=== PATIENT | male | born 1950 | race Caucasian/White ===

== ENCOUNTER 2020-10-21 08:14 | Outpatient (CLI) | payer MEDICARE, SELFPAY ==
--- NOTE | 2020-10-21 | ECG_ITS ---
Measurements Intervals [place] Rate: 64 P: -14 [place]: 192 QRS: -12 QRSD: 107 T: 20 QT: 398 QTc: 412 Interpretive Statements SINUS RHYTHM NORMAL ECG Electronically Signed On 10-21-2020 14:25:26 [employer] by Chet Yeager D.O.
[2020-10-21 08:54] LABS: Anion Gap 10 mmol/L (8-16); Blood Urea Nitrogen 22 mg/dL (9-20); Calcium 9.2 mg/dL (8.4-10.2); Carbon Dioxide 23 mmol/L (22-30); Chloride 105 mmol/L (98-107); Estimated Glomerular Filt Rate > 60; Glucose 118 mg/dL (75-110); Potassium 4.2 mmol/L (3.4-5.0); Sodium 138 mmol/L (137-145)
== END 2020-10-21 08:15 | disposition home or self-care (01) ==
PROVIDERS: Visit Provider Orthopaedic Surgery Hand Surgery
DX: M75.122 Complete rotator cuff tear or rupture of left shoulder, not specified as traumatic (principal)
CPT/HCPCS: 36415; 80048; 93005

== ENCOUNTER 2022-10-30 01:07 | Day surgery (SDC) | payer MEDICARE, OTHER, SELFPAY ==
--- NOTE | 2022-10-22 13:42 | PC.NURSE ---
Report to the Outpatient Waiting Room, entrance under the green pavilion located off [facility], at time _0645 on date _10/30/22 . Planned Procedure Time: __45 . Time changes happen often and if your time is changed the preop area will call you the afternoon before. - You and your visitor will be asked to self-screen and do not enter if you have any COVID symptoms. - Only one visitor is requested with a max of two and NO children visitors are allowed at this time. - The patient visitor may be requested to leave or wait in car when not with patient due to distancing restrictions. - A mask is optional within the hospital. Patients may have clear liquids (water, carbonated beverages, clear teas, apple juice) until 3 hours prior to surgery with a maximum of 20 ounces. - No food from midnight until time of surgery - Infants may have breast milk until 4 hours before surgery, formula 6 hours prior to surgery. - Children will be allowed to drink immediately following surgery. If applicable, please bring a bottle or sippy cup to assist with drinking. Juice, water, soda, and popsicles are readily available. For infants on formula, please bring formula the day of surgery. Pacifiers are allowed. Take the following medications with a SIP of water the morning of surgery: ___NONE Medications to discontinue per physician ___PT STATES ASPIRIN AND MELOXICAM 7 DAYS PRE OP PER DR VASQUEZ, ALL VIT/SUPP 3 DAYS PRE OP Date to take last dose_ASPIRIN/MELOXICAM 10/22/22 AND ALL VIT/SUPP 10/26/22 Please no make-up, nail turkish, hairspray, perfume, deodorant, or body powder the day of surgery. No jewelry (including any body piercings) or valuables the day of surgery, leave them at home. Please take a shower or bath the night before, or the morning of, surgery with an antibacterial soap. Wear comfortable, loose fitting clothing. Children are encouraged to wear pajamas. - Jewelry must be removed prior to entering the operating room. Rings and piercings that are not removed may be cut off. - The hospital will not accept responsibility for valuables. - Please leave all valuables, including medications, at home the day of surgery. If you are going home after surgery, a licensed team otr truck driver must drive you home. - NO public transportation without another adult if you receive anesthesia. - We recommend that an adult stay with you for 24 hours following discharge. - We also recommend that you do not drive, make important decision, drink alcoholic beverages, or take any drugs that were not prescribed by your health care provider for at least 24 hours after your discharge time. For Pediatric surgeries, we recommend two adults accompany the child home. Follow any additional instructions given to you from your surgeon. If you or anyone in your household have experienced Covid symptoms in the past week, please notify your surgeon or the nurse liaison at the phone number below for possible testing. Telephone instructions given to _PATIENT and asked if any additional questions and then verbalized understanding. Patient advised to call surgeon office or pre surgery nurse liaison [phone] if any additional questions.
[2022-10-22 13:49] VITALS: BMI 30.2
--- NOTE | 2022-10-29 17:04 | PM.IMHP ---
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), left ankle (11/22/15) Thyrotoxicosis Tibialis anterior tendon tear, traumatic Toxic multinodular goiter Surgical History Surgical History History of knee surgery History of neck surgery Family History Family History Mother Asthma Other Cerebrovascular accident Family history of arthritis Family history of cardiovascular disease Family history of hearing loss Social History Social History Smoking packs per day: 0.5 Smoking cigarettes per day: 10.0 Years smoked: 20 Smoking pack-years: 10.00 Smoking status: Former smoker Tobacco type: cigarettes Smoking end date: 11/25/12 Alcohol intake: current Drinks per week: 1 Alcohol use details: occasional Substance use: current Substance use type: marijuana Other substance usage details: SMOKES EVERY OTHER DAY Last use: 10/22/22 Living arrangements: with family Spiritual care concerns: No Meds Home Medications and Allergies Home Medications Medication Instructions Recorded Confirmed Type amlodipine 2.5 mg tablet 2.5 mg PO DAILY 11/30/20 10/22/22 History aspirin 81 mg tablet,delayed 81 mg PO DAILY 11/30/20 10/22/22 History release (Adult Aspirin Regimen) cholecalciferol (vitamin D3) 50 50 mcg PO DAILY 11/30/20 10/22/22 History mcg (2,000 unit) capsule fluticasone propionate 50 1 spray intranasal DAILY 11/30/20 10/22/22 History mcg/actuation nasal spray,suspension losartan 100 mg tablet 100 mg PO DAILY 11/30/20 10/22/22 History meloxicam 7.5 mg tablet 7.5 mg PO DAILY 11/30/20 10/22/22 History multivitamin 1 tablet PO DAILY 11/30/20 10/22/22 History omega-3 fatty acids 500 mg capsule 500 mg PO DAILY 11/30/20 10/22/22 History omeprazole 20 mg capsule,delayed 20 mg PO DAILY 11/30/20 10/22/22 History release methimazole 10 mg tablet See Rx Instructions PO DAILY #90 08/01/22 10/22/22 Rx tabs Lactobacillus 1 cap PO HS 10/22/22 10/22/22 History acidophilus-Bifidobac.animalis 2.5 billion cell capsule (Daily Probiotic) acetaminophen 500 mg capsule 1,000 mg PO Q6H PRN Pain 10/22/22 10/22/22 History duloxetine 20 mg capsule,delayed 40 mg PO HS 10/22/22 10/22/22 History release finasteride 5 mg tablet 5 mg PO HS 10/22/22 10/22/22 History gemfibrozil 600 mg tablet 600 mg PO BID 10/22/22 10/22/22 History loratadine 10 mg capsule 10 mg PO HS 10/22/22 10/22/22 History pravastatin 40 mg tablet 40 mg PO HS 10/22/22 10/22/22 History tamsulosin 0.4 mg capsule 0.4 mg PO HS 10/22/22 10/22/22 History Allergies Allergy/AdvReac Type Severity Reaction Status Date / Time Penicillins Allergy Severe Unknown Verified 10/22/22 13:24 lisinopril Allergy Unknown Swelling Verified 10/22/22 13:24 of Lip/Tongue/Throat Exam Narrative: large thyroid Assessment and Plan Assessment and plan (1) Dysphagia: Code(s): R13.10 - Dysphagia, unspecified Status: Acute Assessment and Plan: plan OR right-sided thyroid lobectomy with recurrent laryngeal nerve monitoring. Risks were discussed including bleeding infection damage to surrounding structures need for persistent calcium supplementation need for thyroid supplementation bleeding infection failure to resolve symptoms need for tr
[2022-10-30] VITALS (8 sets, daily range): BP systolic 124–150; BP diastolic 77–86; PULSE 72–84; RESP 15–23; TEMP 36.6–37.1; O2SAT 96–98
[2022-10-30] MEDS: LACTATED RINGERS 1,000 ML 30 ML IV CONT ×2 (07:10→11:46)
--- NOTE | 2022-10-30 07:13 | WPDHPUPDATE1 ---
History and Physical Update Update Date/Time: 10/30/22 07:13 History and Physical has been reviewed, including an updated exam of the patient. There are NO changes in the patient's condition. Risks, benefits, and alternatives have been discussed and questions answered. Patient agrees to proceed with procedure.
[2022-10-30] MEDS: ACETAMINOPHEN 500 MG TABLET 1000 MG PO (07:26)
--- NOTE | 2022-10-30 07:31 | ECG_ITS ---
Measurements Intervals [place] Rate: 70 P: -4 [place]: 194 QRS: -25 QRSD: 109 T: 39 QT: 386 QTc: 419 Interpretive Statements SINUS RHYTHM BORDERLINE LEFT AXIS DEVIATION [QRS AXIS < -20] COMPARED TO ECG 10/21/2020 08:53:27 NO SIGNIFICANT CHANGES Electronically Signed On 10-30-2022 15:30:26 [employer]ARD INSPECTOR by Kamran Winslow M.D.
--- NOTE | 2022-10-30 08:15 | WPDANESEPPF ---
Anes - Initial Pre Proc Eval Procedure: Operation Date: 10/30/22 08:45 Proposed Procedures p Right Thyroidectomy - Chema Camara MD Date/Time: 10/30/22 08:15 Surgeon: Chema Camara MD Pre Op Diagnosis: right thyroid mass Patient Data Age: 72 Gender: M Height: 1.88 m Weight: 110.6 kg Last Vital Signs Temp 36.6 C 10/30/22 07:34 Pulse 72 10/30/22 07:34 Resp 16 10/30/22 07:34 BP 124/78 10/30/22 07:34 Pulse Ox 98 10/30/22 07:34 O2 Del Method Room Air 10/30/22 07:34 Allergies Allergy/AdvReac Type Severity Reaction Status Date / Time Penicillins Allergy Severe Unknown Verified 10/30/22 06:52 lisinopril Allergy Unknown Swelling Verified 10/30/22 06:52 of Lip/Tongue/Throat Home Medications Medication Instructions Recorded Confirmed Type amlodipine 2.5 mg tablet 2.5 mg PO DAILY 11/30/20 10/30/22 History aspirin 81 mg tablet,delayed 81 mg PO DAILY 11/30/20 10/30/22 History release (Adult Aspirin Regimen) cholecalciferol (vitamin D3) 50 50 mcg PO DAILY 11/30/20 10/30/22 History mcg (2,000 unit) capsule fluticasone propionate 50 1 spray intranasal DAILY 11/30/20 10/30/22 History mcg/actuation nasal spray,suspension losartan 100 mg tablet 100 mg PO DAILY 11/30/20 10/30/22 History meloxicam 7.5 mg tablet 7.5 mg PO DAILY 11/30/20 10/30/22 History multivitamin 1 tablet PO DAILY 11/30/20 10/30/22 History omega-3 fatty acids 500 mg capsule 500 mg PO DAILY 11/30/20 10/30/22 History omeprazole 20 mg capsule,delayed 20 mg PO DAILY 11/30/20 10/30/22 History release methimazole 10 mg tablet See Rx Instructions PO DAILY #90 08/01/22 10/30/22 Rx tabs Lactobacillus 1 cap PO HS 10/22/22 10/30/22 History acidophilus-Bifidobac.animalis 2.5 billion cell capsule (Daily Probiotic) acetaminophen 500 mg capsule 1,000 mg PO Q6H PRN Pain 10/22/22 10/30/22 History duloxetine 20 mg capsule,delayed 40 mg PO HS 10/22/22 10/30/22 History release finasteride 5 mg tablet 5 mg PO HS 10/22/22 10/30/22 History gemfibrozil 600 mg tablet 600 mg PO BID 10/22/22 10/30/22 History loratadine 10 mg capsule 10 mg PO HS 10/22/22 10/30/22 History pravastatin 40 mg tablet 40 mg PO HS 10/22/22 10/30/22 History tamsulosin 0.4 mg capsule 0.4 mg PO HS 10/22/22 10/30/22 History Patient hx anesthesia problems: none Family hx anesthesia problems: none Results Review: All pre-operative results and documents have been reviewed as part of the pre-operative evaluation. 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), left ankle (11/22/15) Thyrotoxicosis Tibialis anterior tendon tear, traumatic Toxic multinodular goiter Surgical History Surgical History History of knee surgery History of neck surgery Family History Family History Mother Asthma Other Cerebrovascular accident Family history of arthritis Family history of cardiovascular disease Family history of hearing loss Social History Social History Smoking packs per day: 0.5 Smoking cigarettes per day: 10.0 Years smoked: 20 Smoking pack-years: 10.00 Smoking status: Former smoker Tobacco type: cigarettes Smoking end date: 11/25/12 Alcohol intake: current Drinks per week: 1 Alcohol use details: occasional Substance use: current Substance use type: marijuana Other substance usage details: SMOKES EVERY OTHER DAY Last use: 10/22/22 Living arrangements: with family Spiritual care concerns: No Anes - Eval Final PreProcedure Day of Procedure 10/30/22 08:15
[2022-10-30] MEDS: ceFAZolin 2 GM/D5W 50 ML 2 GM/50 ML BAG IVPB (08:36)
[2022-10-30] MEDS: LIDO 1%/EPINEPHRINE/PF 1:200,000 30 ML VIAL 10 ML XX (09:06)
--- NOTE | 2022-10-30 12:01 | W.PM.PROC2 ---
Procedure Note - Detailed Date of Procedure 10/30/22 Pre-op Diagnosis right thyroid mass, dysphagia, choking, gagging Post-op Diagnosis Same Procedure Performed subtotal right thyroidectomy 90%+ removed Surgeon Chema Camara MD Anesthesia General Indications see above Findings very very large right thyroid lobe removed secondary to bleeding and intimate relationship of right recurrent laryngeal nerve and tubercle of Zuckerkandl decision was made to leave tubercle Description of Procedure patient identified consent verified. Patient brought operating room. Time-out performed. General anesthesia induced Nims monitoring tube secured patient's airway. Patient prepped draped position. Second time-out performed. Recurrent laryngeal nerve monitoring confirmed. Fifteen blade utilized to incise the skin 8 cm incision over the neck 1-2 fingerbreadths above the sternal notch. Included a previous ACDF scar. This was taken down to the subdermal tissue ligature utilized to open tissues completely as well as for hemostasis. Skin hooks double prong skin hooks utilized to create subplatysmal plane superiorly and inferiorly left sorry right anterior jugular vein ligated with ligature. Skin hooks then placed midline were Fe located opened with Bovie as well as ligature this was taken down to the thyroid right thyroid lobe dissected using scissors and ligature the middle thyroid vein was taken on right dissection then was carried superiorly and medial cm the sternothyroid was released from the laryngeal framework with ligature. Superior vascular supply taken with ligature. [place]cocks then utilized to pull this out. Dissection was then carried with peanuts as well as ligature to take the inferior thyroid vessels. No parathyroids were identified on this side. At this point the nerve was located in stuck behind the tubercle of Zuckerkandl the decision made to transect the thyroid with ligature. Tubercle of Zuckerkandl as well as small amount of tissue. Valsalva was then performed after irrigating with copious amounts of normal sterile saline. Any small bleeding was cauterized with bipolar electrocautery at a setting of 10. The nerve was now deep in the tissue. It stimulated deep. Seven Northern Irish drain plate sorry 10 Northern Irish drain placed. Sutured to the skin with 3-0 nylon suture. Strap muscles closed in a vertical fashion using interrupted 3-0 Vicryl platysma closed using 3-0 interrupted Vicryl deep tissue closed 3-0 interrupted Vicryl skin closed with a subcuticular 4-0 Monocryl. Skin glue placed. Upon awakening glide scope was utilized to view the cords right cord moved perfectly. Patient tolerated the procedure well total blood loss 150 cc. No immediate complications. Patient taken to PACU. Estimated Blood Loss -150.0 Drains No Packing No Pathology Yes Complications No immediate complications Condition Stable Disposition PACU
[2022-10-30] MEDS: oxyCODONE HCL (*CRX) 5 MG TAB IR PO (13:04)
== END 2022-10-30 13:49 | disposition home or self-care (01) ==
PROVIDERS: Visit Provider Otolaryngology
PROC: (CPT 60210; principal; 2022-10-30 08:45)
DX: E04.2 Nontoxic multinodular goiter (principal); I10 Essential (primary) hypertension; Z87.891 Personal history of nicotine dependence; F12.90 Cannabis use, unspecified, uncomplicated; Z79.82 Long term (current) use of aspirin; E66.9 Obesity, unspecified; Z68.31 Body mass index [BMI] 31.0-31.9, adult
CPT/HCPCS: 60210; 88307; 93005; A9270; J0330; J0690; J1100; J1170; J2370; J2405; J2704; J3010; J7120

== ENCOUNTER 2022-11-28 09:12 | Outpatient (CLI) | payer MEDICARE, OTHER, SELFPAY | END 2022-11-28 09:13 | disposition home or self-care (01) | PROVIDERS: Referring Provider Internal Medicine Endocrinology, Diabetes & Metabolism; Visit Provider Otolaryngology | DX: E04.2 Nontoxic multinodular goiter (principal) | CPT/HCPCS: 36415; 84443 ==

== ENCOUNTER 2023-08-01 09:46 | Outpatient (CLI) | payer MEDICARE, OTHER, SELFPAY ==
--- NOTE | 2023-08-01 | ECG_ITS ---
Measurements Intervals [place] Rate: 64 P: 53 [place]: 196 QRS: -15 QRSD: 95 T: 39 QT: 394 QTc: 407 Interpretive Statements SINUS RHYTHM BASELINE WANDER- I, II NORMAL ECG COMPARED TO ECG 10/30/2022 07:49:31 NO SIGNIFICANT CHANGES Electronically Signed On 08-01-2023 11:53:14 CDT by Chet Yeager D.O.
[2023-08-01 12:18] LABS: Anion Gap 12 mmol/L (8-16); Blood Urea Nitrogen 18 mg/dL (9-20); Calcium 9.4 mg/dL (8.4-10.2); Carbon Dioxide 22 mmol/L (22-30); Chloride 104 mmol/L (98-107); Estimated Glomerular Filt Rate > 60; Glucose 113 mg/dL (65-110); Potassium 4.4 mmol/L (3.4-5.0); Sodium 138 mmol/L (137-145)
== END 2023-08-01 09:47 | disposition home or self-care (01) ==
PROVIDERS: Visit Provider Orthopaedic Surgery
DX: Z01.818 Encounter for other preprocedural examination (principal)
CPT/HCPCS: 36415; 80048; 93005

== ENCOUNTER 2024-03-05 15:31 | Outpatient (CLI) | payer MEDICARE, OTHER, SELFPAY ==
[2024-03-05 17:31] LABS: Free T4 Free Thyroxine 1.24 ng/mL (0.78-2.19)
== END 2024-03-05 15:32 | disposition home or self-care (01) ==
LOC: ANHWCLAB 15:32
PROVIDERS: Visit Provider Internal Medicine Endocrinology, Diabetes & Metabolism
DX: E04.2 Nontoxic multinodular goiter (principal); E05.90 Thyrotoxicosis, unspecified without thyrotoxic crisis or storm
CPT/HCPCS: 36415; 84439; 84443

== ENCOUNTER 2024-04-27 09:46 | Outpatient (CLI) | payer MEDICARE, OTHER, SELFPAY ==
--- NOTE | ~2024-04-27 | US_ITS ---
Thyroid ultrasound. Clinical History: Post procedural hypothyroidism Findings: Real-time sonography of the thyroid gland was performed. The right lobe measures 4.8 x 2.2 x 2.3 cm. The left lobe measures 5.9 x 3.5 x 3.1 cm. The isthmus is 4 mm in AP diameter. There is a 2.1 x 1.7 x 2.0 cm predominantly solid mildly hypoechoic nodule at the right lower pole wi th central cystic change or necrosis. There is a 2.1 x 1.7 x 2.5 cm hyperechoic solid nodule at the left lower pole. Impression: Bilateral lower pole thyroid nodules, measuring between 2 and 2.5 cm, compatible with TR-3 nodules. G iven size, one year follow-up recommended.. Reviewed, dictated and finalized at location . Impression: Bilateral lower pole thyroid nodules, measuring between 2 and 2.5 cm, compatibl e with TR-3 nodules. Given size, one year follow-up recommended..
== END 2024-04-27 09:47 ==
LOC: GOSHIMG 09:47
PROVIDERS: Visit Provider Otolaryngology
DX: E89.0 Postprocedural hypothyroidism (principal); E04.2 Nontoxic multinodular goiter
CPT/HCPCS: 76536

== ENCOUNTER 2024-05-11 14:45 | Outpatient (CLI) | payer MEDICARE, OTHER, SELFPAY ==
--- NOTE | ~2024-05-11 | CT_ITS ---
EXAMINATION: CT soft tissue neck w con DATE: 05/11/2024 15:12 INDICATION: Neck mass. TECHNIQUE: Computed tomography (CT) of the neck was performed with 75 mL Omnipaque-350 intravenous co ntrast. Automated exposure control and iterative reconstruction technique were employed. The dose-bibi gth product was 450.92 mGy-cm. COMPARISON: None FINDINGS: The thyroid is enlarged and extends into the superior mediastinum. There is a 2.4 cm nodule in right thyroid lobe. There is mild plaque in proximal left internal carotid artery with 0% stenosi s relative to normal distal artery lumen diameter. Calcified mediastinal lymph nodes are consistent w ith old granulomatous disease. No pathologically enlarged cervical lymph nodes. The mastoid air cells are normal. The paranasal sinuses are clear. The orbits are normal. There is moderate cervical spond ylosis. There are changes of anterior fusion procedure at C6-C7. IMPRESSION: 1. Goiter. Consider thyroid ultrasound for risk stratification. Reviewed, dictated and finalized at location E.
[2024-05-11 15:03] LABS: Estimated Glomerular Filt Rate > 60
== END 2024-05-11 14:46 ==
LOC: MICIMG 14:46
PROVIDERS: Visit Provider Otolaryngology
DX: R22.1 Localized swelling, mass and lump, neck (principal); E04.9 Nontoxic goiter, unspecified
CPT/HCPCS: 70491; Q9967

== ENCOUNTER 2024-05-29 00:22 | Day surgery (SDC) | payer MEDICARE, OTHER, SELFPAY ==
--- NOTE | 2024-05-25 13:52 | PC.NURSE ---
Report to the Outpatient Waiting Room, entrance under the green pavilion located off [facility], at time _1200 on date ___05/29/24____. Planned Procedure Time: __1400 . Time changes happen often and if your time is changed the preop area will call you the afternoon before. - You and your visitor will be asked to self-screen and do not enter if you have any COVID symptoms. - A mask is optional within the hospital at this time. Patients may have clear liquids (water, carbonated beverages, clear teas, apple juice) until 3 hours prior to surgery( 11 AM) with a maximum of 20 ounces. - No food from midnight until time of surgery - Infants may have breast milk until 4 hours before surgery, infant formula 6 hours prior to surgery. - Children will be allowed to drink immediately following surgery. If applicable, please bring a bottle or sippy cup to assist with drinking. Juice, water, soda, and popsicles are readily available. For infants on formula, please bring formula the day of surgery. Pacifiers are allowed. Take the following medications with a SIP of water the morning of surgery: _AMLODIPINE ,CARVEDILOL,METHIMAZOLE DO NOT STOP ANY OF YOUR OTHER PRESCRIPTION MEDICATIONS PRIOR TO SURGERY ?EXCEPT THE FOLLOWING Medications to discontinue per physician __HOLD ALL VITAMINS AND SUPPLEMENTS 3 DAYS PRE OP LAST DOSE 05/25/[address] PATEL Please no make-up, nail greenlandic, hairspray, perfume, deodorant, or body powder the day of surgery. No jewelry (including any body piercings) or valuables the day of surgery, leave them at home. Please take a shower or bath the night before, or the morning of, surgery with an antibacterial soap. Wear comfortable, loose fitting clothing. Children are encouraged to wear pajamas. - Jewelry must be removed prior to entering the operating room. Rings and piercings that are not removed may be cut off. - The hospital will not accept responsibility for valuables. - Please leave all valuables, including medications, at home the day of surgery. If you are going home after surgery, a licensed laborer driver must drive you home. - NO public transportation without another adult if you receive anesthesia. - We recommend that an adult stay with you for 24 hours following discharge. - We also recommend that you do not drive, make important decision, drink alcoholic beverages, or take any drugs that were not prescribed by your health care provider for at least 24 hours after your discharge time. For Pediatric surgeries, we recommend two adults accompany the child home. Follow any additional instructions given to you from your surgeon. If you or anyone in your household have experienced Covid symptoms in the past week, please notify your surgeon or the nurse liaison at the phone number below for possible testing. Telephone instructions given to __PT and asked if any additional questions and then verbalized understanding. Patient advised to call surgeon office or pre surgery nurse liaison [phone] if any additional questions.
[2024-05-25 13:57] VITALS: BMI 31.4
--- NOTE | 2024-05-28 15:59 | PM.IMHP ---
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), left ankle (11/22/15) Thyrotoxicosis Tibialis anterior tendon tear, traumatic Toxic multinodular goiter Surgical History Surgical History H/O thyroidectomy right lobe History of knee surgery History of neck surgery S/P hernia surgery Family History Family History Mother Asthma Other Cerebrovascular accident Family history of arthritis Family history of cardiovascular disease Family history of hearing loss Social History Social History Smoking packs per day: 0.5 Smoking cigarettes per day: 10.0 Years smoked: 20 Smoking pack-years: 10.00 Smoking status: Former smoker Tobacco type: cigarettes Smoking end date: 11/25/12 Alcohol intake: current Drinks per week: 1 Alcohol use details: occasional Substance use: current Substance use type: marijuana Other substance usage details: EVERY OTHER DAY Last use: 05/24/24 Lack of Transportation: No Lack of Food: Never True Current Housing: I Have Housing Concerned About Future Housing: No Difficulty Paying Gas/Electric Bills: No Difficulty Paying for Meds: No Currently Unemployed: No Education: Trade/Vocational Certificate Difficulty w/ Childcare or Family Care: No Living arrangements: with family Spiritual care concerns: No Meds Home Medications and Allergies Home Medications Medication Instructions Recorded Confirmed Type amlodipine 2.5 mg tablet 2.5 mg PO DAILY 11/30/20 05/27/24 History cholecalciferol (vitamin D3) 50 50 mcg PO DAILY 11/30/20 05/27/24 History mcg (2,000 unit) capsule fluticasone propionate 50 1 spray intranasal DAILY 11/30/20 05/27/24 History mcg/actuation nasal spray,suspension losartan 100 mg tablet 100 mg PO DAILY 11/30/20 05/27/24 History multivitamin 1 tablet PO DAILY 11/30/20 05/27/24 History omeprazole 20 mg capsule,delayed 20 mg PO DAILY 11/30/20 05/27/24 History release Lactobacillus 1 cap PO HS 10/22/22 05/27/24 History acidophilus-Bifidobac.animalis 2.5 billion cell capsule (Daily Probiotic) acetaminophen 500 mg capsule 1,000 mg PO Q6H PRN Pain 10/22/22 05/27/24 History duloxetine 20 mg capsule,delayed 40 mg PO HS 10/22/22 05/27/24 History release gemfibrozil 600 mg tablet 600 mg PO BID 10/22/22 05/27/24 History loratadine 10 mg capsule 10 mg PO HS 10/22/22 05/27/24 History tamsulosin 0.4 mg capsule 0.4 mg PO HS 10/22/22 05/27/24 History methimazole 10 mg tablet See Rx Instructions PO DAILY #90 03/05/24 05/27/24 Rx tabs carvedilol 6.25 mg tablet 6.25 mg PO BID 05/25/24 05/27/24 History meloxicam 15 mg tablet 15 mg PO DAILY 05/25/24 05/27/24 History pravastatin 80 mg tablet 80 mg PO HS 05/25/24 05/27/24 History Allergies Allergy/AdvReac Type Severity Reaction Status Date / Time Penicillins Allergy Severe Unknown Verified 05/27/24 15:32 lisinopril Allergy Unknown Swelling Verified 05/27/24 15:32 of Lip/Tongue/Throat Exam Narrative: vocal cord leukoplakia Assessment and Plan Assessment and plan (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 Risks discussed bleeding infec
[2024-05-29] VITALS (7 sets, daily range): BP systolic 130–155; BP diastolic 73–93; PULSE 59–70; RESP 12–20; TEMP 36.2–36.4; O2SAT 97–99
--- NOTE | 2024-05-29 07:20 | WPDHPUPDATE1 ---
History and Physical Update Update Date/Time: 05/29/24 07:20 History and Physical has been reviewed, including an updated exam of the patient. There are NO changes in the patient's condition. Risks, benefits, and alternatives have been discussed and questions answered. Patient agrees to proceed with procedure.
[2024-05-29] MEDS: LACTATED RINGERS 1,000 ML 30 ML IV CONT (11:00)
--- NOTE | 2024-05-29 11:58 | WPDANESEPPF ---
Anes - Initial Pre Proc Eval Procedure: Operation Date: 05/29/24 14:00 Proposed Procedures p Direct Laryngoscopy with Vocal Cord Biopsy - Chema Camara MD Date/Time: 05/29/24 11:58 Surgeon: Chema Camara MD Pre Op Diagnosis: Vocal Cord Lesion Patient Data Age: 74 Gender: M Height: 1.88 m Weight: 110 kg Last Vital Signs Temp 36.4 C L 05/29/24 10:20 Pulse 70 05/29/24 10:20 Resp 20 05/29/24 10:20 BP 141/84 H 05/29/24 10:20 Pulse Ox 98 05/29/24 10:20 O2 Del Method Room Air 05/29/24 10:20 Allergies Allergy/AdvReac Type Severity Reaction Status Date / Time Penicillins Allergy Severe Unknown Verified 05/27/24 15:32 lisinopril Allergy Unknown Swelling Verified 05/27/24 15:32 of Lip/Tongue/Throat Home Medications Medication Instructions Recorded Confirmed Type amlodipine 2.5 mg tablet 2.5 mg PO DAILY 11/30/20 05/29/24 History cholecalciferol (vitamin D3) 50 50 mcg PO DAILY 11/30/20 05/29/24 History mcg (2,000 unit) capsule fluticasone propionate 50 1 spray intranasal DAILY 11/30/20 05/29/24 History mcg/actuation nasal spray,suspension losartan 100 mg tablet 100 mg PO DAILY 11/30/20 05/29/24 History multivitamin 1 tablet PO DAILY 11/30/20 05/29/24 History omeprazole 20 mg capsule,delayed 20 mg PO DAILY 11/30/20 05/29/24 History release Lactobacillus 1 cap PO HS 10/22/22 05/29/24 History acidophilus-Bifidobac.animalis 2.5 billion cell capsule (Daily Probiotic) acetaminophen 500 mg capsule 1,000 mg PO Q6H PRN Pain 10/22/22 05/29/24 History duloxetine 20 mg capsule,delayed 40 mg PO HS 10/22/22 05/29/24 History release gemfibrozil 600 mg tablet 600 mg PO BID 10/22/22 05/29/24 History loratadine 10 mg capsule 10 mg PO HS 10/22/22 05/29/24 History tamsulosin 0.4 mg capsule 0.4 mg PO HS 10/22/22 05/29/24 History methimazole 10 mg tablet See Rx Instructions PO DAILY #90 03/05/24 05/29/24 Rx tabs carvedilol 6.25 mg tablet 6.25 mg PO BID 05/25/24 05/29/24 History meloxicam 15 mg tablet 15 mg PO DAILY 05/25/24 05/29/24 History pravastatin 80 mg tablet 80 mg PO HS 05/25/24 05/29/24 History Patient hx anesthesia problems: none Family hx anesthesia problems: none Results Review: All pre-operative results and documents have been reviewed as part of the pre-operative evaluation. 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), left ankle (11/22/15) Thyrotoxicosis Tibialis anterior tendon tear, traumatic Toxic multinodular goiter Surgical History Surgical History H/O thyroidectomy right lobe History of knee surgery History of neck surgery S/P hernia surgery Family History Family History Mother Asthma Other Cerebrovascular accident Family history of arthritis Family history of cardiovascular disease Family history of hearing loss Social History Social History Smoking packs per day: 0.5 Smoking cigarettes per day: 10.0 Years smoked: 20 Smoking pack-years: 10.00 Smoking status: Former smoker Tobacco type: cigarettes Smoking end date: 11/25/12 Alcohol intake: current Drinks per week: 1 Alcohol use details: occasional Substance use: current Substance use type: marijuana Other substance usage details: EVERY OTHER DAY Last use: 05/24/24 Lack of Transportation: No Lack of Food: Never True Current Housing: I Have Housing Concerned About Future Housing: No Difficulty Paying Gas/Electric Bills: No Difficulty Paying for Meds: No Currently Unemployed: No Education: Trade/Vocational Certificate Difficulty w/ Childcare or Family Care:
[2024-05-29] MEDS: OXYMETAZOLINE HCL 0.05% NAS 15 ML BTL (*BKC) 1 SPRAY NASAL (12:41)
--- NOTE | 2024-05-29 13:27 | P.OP_ITS ---
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 Description of Procedure Patient identified consent verified preop. Patient brought operating. Time- out performed. General anesthesia induced endotracheal tube secured. Patient prepped draped position procedure confirmed 2nd time-out performed moist Ray-Kurtis placed over the upper gingiva Dedo laryngoscope placed glottis brought into view suspended endoscope utilized left vocal cord biopsy x3 minimal bleeding if any Afrin-soaked pledgets placed for 5 minutes then removed no further bleeding. Dedo laryngoscope Ray-Kurtis removed all counts were correct. Patient tolerated the procedure well. No complications I performed all dictated portions of procedure Estimated Blood Loss 0 Drains No Packing No Pathology Yes ( left vocal cord lesion) Complications No immediate complications Condition Stable Disposition PACU
== END 2024-05-29 14:25 | disposition home or self-care (01) ==
PROVIDERS: Visit Provider Otolaryngology
PROC: 0CJS8ZZ Inspection of Larynx, Via Natural or Artificial Opening Endoscopic (ICD-10-PCS; CPT 31535; principal; 2024-05-29 14:00)
DX: D14.1 Benign neoplasm of larynx (principal); J37.0 Chronic laryngitis; J38.3 Other diseases of vocal cords
CPT/HCPCS: 31535; 88305; J0330; J1100; J2405; J2704; J3010; J7120

== ENCOUNTER 2024-07-09 08:08 | Outpatient (CLI) | payer MEDICARE, OTHER, SELFPAY ==
--- NOTE | ~2024-07-09 | XR_ITS ---
EXAMINATION: XR barium swallow modified DATE: 07/09/2024 08:54 INDICATION: Dysphagia, specified. TECHNIQUE: The patient was given barium-containing material of multiple consistencies to swallow by t trish speech pathologist while I performed fluoroscopy. Fluoroscopy exposure time was 1.5 minutes. The n umber of fluoroscopy images saved to the PACS was 1. Dose-area product was 2.137 Gy-cm^2. FINDINGS: There is flash laryngeal penetration. IMPRESSION: 1. Flash laryngeal penetration. 2. Please refer to the speech therapy report for recommendations. Reviewed, dictated and finalized at location A.
--- NOTE | 2024-07-09 09:51 | REHSTMBS ---
Assessment and note entered by Brittany Lazcano, [employer]AL [employer] Modified Barium Swallow Evaluation Feeding Type Recommended Oral Food Consistency Regular, Level 7 Liquid Consistency Thin (0) ST Clinical Summary The above pt was seen for a modified barium swallow study due to complaint of coughing and choking especially when he is sleeping in a position with my head down . He added that occasionally he can't swallow correctly when his sinuses drain. Pt denied choking or coughing during meals and denies having a history of pneumonia. Pt reported he can take a hand full of pills but stopped taking the fish oil pill as it seems to get stuck. 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 The pt was positioned for a lateral view. Anterior cervical protrusions were noted along cervical column with the presence of hardware at C6/7. Pt was presented with thin liquids, pudding consistency, mixed consistency, and solids in controlled amounts. He was also tested with thin liquids in uncontrolled amounts via a cup and a straw. The oral stages were intact and within normal limits. During the pharyngeal stage, intermittent flash laryngeal penetration occurred during the trials of uncontrolled thin liquids & cracker. Flash penetration is age appropriate, shallow, and quickly cleared without aspiration risk. No residual or backflow was exhibited. Impression: Functional swallow ability Recommendation: regular diet; regular liquids. possible further testing to determine etiology.
== END 2024-07-09 08:09 | disposition home or self-care (01) ==
LOC: ANHIMG 08:10
PROVIDERS: PCP Family Medicine; Visit Provider Neurological Surgery
DX: R13.10 Dysphagia, unspecified (principal)
CPT/HCPCS: 92611

== ENCOUNTER 2024-08-21 09:55 | Outpatient (CLI) | payer MEDICARE, OTHER, SELFPAY ==
[2024-08-21 11:03] LABS: Thyroid Stimulating Hormone 0.781 uIU/mL (0.465-4.680)
== END 2024-08-21 09:56 | disposition home or self-care (01) ==
LOC: ANHLAB 10:00
PROVIDERS: PCP Family Medicine; Visit Provider Internal Medicine Endocrinology, Diabetes & Metabolism
DX: E04.2 Nontoxic multinodular goiter (principal)
CPT/HCPCS: 36415; 84439; 84443

== ENCOUNTER 2025-02-26 11:57 | Outpatient (CLI) | payer MEDICARE, OTHER, SELFPAY ==
--- OUTSIDE RECORDS SUMMARY | 2025-02-26 12:03 | XMS_ITS | Encounter Summary ---
Author Organization [facility] Address [facility] [place] [address] Care Team Providers Care Traditional Chinese Herbalist Name Role Phone Eric Raza MD Unavailable [phone] Andre Edwards MD Primary Care Provider [phone] Encounter Details Date Type Department Care Team (Late st Contact Info) Description 11/29/2023 Hospital Orders Only [facility] Therapy [address] [place], [place] [id number] Braulio Garrison, PT [address] [place], [place] [id number] Social History Tobacco Use Types Packs/Day Years Used Date Smoking Tobacco: Former Cigarettes Q uit: 2010 Smokeless Tobacco: Never Alcohol Use Standard Drinks/Week Comments Not Currently 2 (1 standard drink = 0.6 oz pur e alcohol) rare AUDIT-C Answer Date Recorded Frequency of Alcohol Consumption 2-4 times a sat11/23/2019 Average Number of Drinks 1 or 2 019 Frequency of Binge Drinking Never 10/27 Overall Financial Resource Strain (CARDIA) Answe r Date Recorded Difficulty of Paying Living Expenses Not hard at all 01/19/2020 PHQ-2 Answer Date Recorded Patient Health Questionnaire-2 Score 0 03/18/2023 Exercise Vital Sign Answer Date Recorde d Days of Exercise per Week Patient declined 01/19 Minutes of Exercise per Session Patient declined 01/19/2020 Hunger Vital Sign Answer Date Recorded Worried About Running Out of Food in the Last Ye ar Never true 01/19/2020 Ran Out of Food in the Last Year Never true 01/19/2020 PRAPARE - Transportation Answer Date Re corded Lack of Transportation (Medical) No 01/19/2020 Lack of Transportation (Non-Medical) No 01/19/2020 Sex and Gender Information Value Date Recorded Sex Assigned at Male 12/29/2024 9:33 AM MARINE FUEL DOCK ATTENDANT Legal Sex Male 5:00 PM CDT Gender Identity Male 01/01/2022 4:34 AM MARINE FUEL DOCK ATTENDANT Sexual Orientation Not on file Occupation Industry Job Start Date Job End Date Not on file Not on file Not on file Not on file documented as of this encounter Plan of Treatment Upcoming Encounters Date Type Department Care Team (Late st Contact Info) Description 03/08/2025 10:15 AM CDT Office Visit [facility] [address] [place] [address] Eric Raza MD [facility]. [address] [place] [address] 03/12/2025 9:20 AM CDT Office Visit [facility] [address] [place] [address] Andre Edwards MD [address] [place], [place] [id number] documented as of this encounter Visit Diagnoses Not on filedocumented in this encounter Additional Health Concerns Assessment Noted Time PHQ-9 Depression Total Score: 0 03/18/20 23 10:03 AM CDT documented as of this encounter Care Teams Traditional Chinese Herbalist Relationship Specialty Start Date End Date Andre Edwards MD [address] [place], [place] [id number] PCP - General FAMILY PRACTICE 05/11/20 Eric Raza MD [facility]. [address] [place] [address] [place] Environmental Adviser CARDIOVASCULAR DISEASE 11/23/19 documented as of this encounter
--- OUTSIDE RECORDS SUMMARY | 2025-02-26 12:03 | XMS_ITS | Encounter Summary ---
Author Organization [facility] Address [facility] [place] [address] Care Team Providers Care Vtc Technician Name Role Phone Eric Raza MD Unavailable [phone] Andre Edwards MD Primary Care Provider Encounter Details Date Type Department Care Team (Late st Contact Info) Description 09/25/2022 [employer] Message Enc [place] [facility], [address] [address] [employer], [facility] Provider Stress Test Social History Tobacco Use Types Packs/Day Years Used Date Smoking Tobacco: Former Cigarettes Q uit: 2010 Smokeless Tobacco: Never Alcohol Use Standard Drinks/Week Comments Yes 0 (1 standard drink = 0.6 oz pur e alcohol) rare AUDIT-C Answer Date Recorded Frequency of Alcohol Consumption 2-4 times a sat11/23/2019 Average Number of Drinks 1 or 2 019 Frequency of Binge Drinking Never 10/27 Overall Financial Resource Strain (CARDIA) Answe r Date Recorded Difficulty of Paying Living Expenses Not hard at all 01/19/2020 PHQ-2 Answer Date Recorded PHQ-2 Score - If the patient scores above 3, please move on to questions 3-9 0 09/19/2022 Exercise Vital Sign Answer Date Recorde d [...] Sex Assigned at Male 12/29/2024 9:33 AM SPRINKLING SYSTEM IRRIGATOR Legal Sex Male 5:00 PM CDT Gender Identity Male 01/01/2022 4:34 AM SPRINKLING SYSTEM IRRIGATOR Sexual Orientation Not on file Occupation Industry Job Start Date Job End Date Not on file Not on file Not on file Not on file COVID-19 Exposure Response Date Recorded In the last 10 days, have yo u been in contact with someone who was confirmed or suspected to have Coronavirus/COVID-19? No / Unsure 09/24/2022 9:16 AM CDT documented as of this encounter Plan of Treatment Upcoming Encounters Date Type Department Care Team (Late st Contact Info) Description 03/08/2025 10:15 AM CDT [facility] [address] [place] [address] Eric Raza MD [facility]. [address] [address] 03/12/2025 9:20 AM CDT Office Visit [facility] [address] [place] [address] Andre Edwards MD [address] [place] [phone] documented as of this encounter Visit Diagnoses Not on filedocumented in this encounter Additional Health Concerns Assessment Noted Time PHQ-9 Depression Total Score: 0 02/21/20 22 8:09 AM CDT documented as of this encounter Care Teams Vtc Technician Relationship Specialty Start Date End Date Andre Edwards MD [facility] [address] [place] [phone] PCP - General FAMILY PRACTICE 05/11/20 Eric Raza MD [facility]. [address] [address] [employer] Test Preparation Tutor CARDIOVASCULAR DISEASE 11/23/19 documented as of this encounter
--- OUTSIDE RECORDS SUMMARY | 2025-02-26 12:03 | XMS_ITS | Clinical Summary ---
Author Organization [facility] Address [address] [place] [address] Care Team Providers Care Habilitative Interventionist Name Role Phone Andre Edwards MD Primary Care Provider [phone] Source Comments [facility],non-owned Affiliates and Associated Physician Practices is amultiple site organization consisting of ambulatory clinics and hospital sitesin [place], [place], [place] and [place]. This disclosure is being madepursuant to the Care Everywhere program and may not contain all information available regarding this patient. Last updated 18.[employer] [facility] Allergies Active Allergy Reactions Criticality Noted Date Comments Lisinopril Swelling High 12/24/2018 tongue Penicillins Rash Medium 03/08/2012 In childhood, does not recall reaction Medications * Be aware that medications may not be up to date on this document. Alwaysverify current medications with the patient. Medication Sig Dispensed Refills Start Date End Date Status amLODIPine (Norvasc) 2.5 MG tablet Take by oral route for 90 days. 06/10/2024 Active aspirin EC (Ecotrin) 81 MG tablet Take 1 (one) tablet by mouth once daily Active BUPivacaine (Marcaine) 0.5 % injection in office 04/01/2024 Active carvedilol (Coreg) 6.25 MG tablet Take 1 (one) tablet by mouth 2 times daily 06/10/2024 Active Cholecalciferol (Vitamin D) 50 MCG (1999) capsule Take 1 (one) capsule by mouth once daily 06/10/2024 Active DULoxetine (Cymbalta) 60 MG capsule Take 1 (one) capsule by mouth once daily 06/10/2024 Active finasteride (Proscar) 5 MG tablet Take 1 (one) tablet by mouth once daily Active gabapentin (Neurontin) 100 MG capsule Take 1 (one) capsule by mouth two times daily at 4am and 4pm Active gemfibrozil (Lopid) 600 MG tablet Take 1 (one) tablet by mouth 2 times daily 06/10/2024 Active loratadine (Claritin) 10 MG tablet Take 1 (one) tablet by mouth once daily as needed Active losartan (Cozaar) 100 MG tablet Take 1 (one) tablet by mouth once daily 06/10/2024 Active meloxicam (Mobic) 15 MG tablet TAKE 1 TABLET (15 MG TOTAL) BY MOUTH DAILY. 04/01/2024 Active methIMAzole (Tapazole) 10 MG tablet TAKE 1 TABLET BY MOUTH DAILY SATURDAY-SATURDAY AND 1/2 TABLET ON SATURDAY AND SATURDAY Active Multiple Vitamin (Multi-Vitamins) TABS Take 1 (one) tablet by mouth Active NA-K-MG sulfates (Suprep) 17.5-3.13-1.6 GM/177ML solution TAKE 177ML BY MOUTH EVERY 12 HOURS FOR 1 DAY TAKE DIRECTED IN THE INSTRUCTIONS 08/25/2024 Active nystatin (Mycostatin) 604156 UNIT/ML suspension SWISH & GARGLE & SWALLOW 4 ML BY MOUTH 4 TIMES A DAY FOR 14 DAYS 04/15/2024 Active omeprazole (PriLOSEC) 20 MG capsule Take 1 (one) capsule by mouth 2 times daily 06/10/2024 Active pravastatin (Pravachol) 80 MG tablet TAKE 1 TABLET BY MOUTH NIGHTLY AT BEDTIME. 06/10/2024 Active rosuvastatin (Crestor) 10 MG tablet Active tamsulosin (Flomax) 0.4 MG capsule Take 1 (one) capsule by mouth at bedtime Active triamcinolone acetonide (Kenalog-10) injection in office 04/01/2024 Active Social History Tobacco Use Types Packs/Day Years Used Date Smoking Tobacco: Former Cigarettes Tobacco Cessation:Counseling Given: No Sex and Gender Information Value Date Recorded Sex Assigned at Not on file Gender Identity Not on file Sexual Orientation Not on file Last Filed Vital Signs Vital Sign Reading Time Taken Comments Blood Pressure 155/96 09/04/2024 11:18 AM CDT Pulse 73 09/04/2024 11:18 AM CDT Temperature 36.4 C (97.6 F) 09/04/2024 11:18 AM CDT Respiratory Rate - - Oxygen Saturation 98% 09/04/2024 11:18 AM CDT Inhaled Oxygen Concentration - - Weight 107 kg (236 lb) 09/04/2024 11:18 AM CDT Height 188 cm (6' 2 ) 09/04/2024 11:18 AM CDT Body Mass Index 30.3 09/04/2024 11:18 AM CDT Plan of Treatment Health Maintenance Due Date Last Done Comments COLOGUARD (AGES 45-75) - COLON CA SCREENING 1952 COLON MONITORING 1952 COLONOSCOPY - COLON CA SCREENING 1952 CT COLONOGRAPHY - COLON CA SCREENING 1952 Colorectal Cancer Screening 1952 FIT - COLON CA SCREENING 1952 FLEX SIG - COLON CA SCREENING 1952 MEDICARE AWV 12 MONTHS 1952 HEPATITIS C SCREENING 02/11/1970 DTAP/TDAP/TD VACCINES (1 - Tdap) 02/15/1971 PNEUMOCOCCAL VACCINE 50+ (1 of 1 - PCV) 02/15/2002 ZOSTER VACCINE (1 of 2) 02/15/2002 COVID-19 VACCINE ( - season) 2024 08/23/2022, 04/26/2022, 09/27/2021, Additional history exists DEPRESSION SCREENING 11/25/2024 INFLUENZA VACCINE (Season Ended) 2025 08/23/2022, 08/18/2020, 10/20/2019, Additional history exists Respiratory Syncytial Virus (RSV) Vaccine Pt: or over 60 yrs (1 - 1-dose 75+ series) 02/15/2027 AAA SCREENING Completed 06/28/2020 HEPATITIS B VACCINE Aged Out No longe r eligible based on patient's age to complete this topic HIB VACCINE Aged Out No longer eligi ble based on patient's age to complete this topic HPV VACCINE Aged Out No longer eligi ble based on patient's age to complete this topic MENINGOCOCCAL (Group B) VACCINE SHARED DECISION-MAKING Aged Out No longer eligible based on patient's age to complete this topic MENINGOCOCCAL GROUPS A/C/Y/W VACCINE Aged Out No longer eligible based on patient's age to complete this topic Care Teams Habilitative Interventionist Relationship Specialty Start Date End Date Andre Edwards MD [facility] [place] [address] PCP - General Family Medicine 09/04/24
--- OUTSIDE RECORDS SUMMARY | 2025-02-26 12:04 | XMS_ITS | Encounter Summary ---
Author Organization [facility] Address [facility] [place] [address] Care Team Providers Care Assembler Fishing Floats Name Role Phone Eric Raza MD Unavailable [phone] Andre Edwards MD Primary Care Provider [phone] Reason for Referral * Surgical (Routine) - New Request Specialty Diagnoses / Procedures Referred By Contac t Referred To Contact Diagnoses Lumbar radiculopathy Procedures Case request operating room: INJECTION EPIDURAL TRANSFORAMINALL5-S1, S1 Jessica Latham CNP [address] [address] Phone: tel: [phone] fax: Referral ID Status Reason Start Date Expiration Date V isits Requested Visits Authorized [id number] New Request 09/14/2024 09/14/2025 1 1 Encounter Details Date Type Department Care Team (Late st Contact Info) Description 09/14/2024 Prep for Procedure [facility] [place] [address] [phone] Jessica Latham CNP [address] [place] [phone] (Work) Social History Tobacco Use Types Packs/Day Years [...] Date Recorded Patient Health Questionnaire-2 Score 0 06/10/2024 Exercise Vital Sign Answer Date Recorde d [...] Sex Assigned at Male 12/29/2024 9:33 AM TEST HOLE DRILLER Legal Sex Male 5:00 PM CDT Gender Identity Male 01/01/2022 4:34 AM TEST HOLE DRILLER Sexual Orientation Not on file Occupation Industry Job Start Date Job End Date Not on file Not on file Not on file Not on file documented as of this encounter Plan of Treatment Upcoming Encounters Date Type Department Care Team (Late st Contact Info) Description 03/08/2025 10:15 AM CDT [facility] [address] [place] [phone] Erci Raza MD [facility]. [address] [place] [address] 03/12/2025 9:20 AM CDT Office Visit [address] [place] [address] Andre Edwards MD [address] [place] [address] documented as of this encounter Visit Diagnoses Diagnosis Lumbar radiculopathy- Primary Thoracic or lumbosacral neuritis or radiculitis, unspecified documented in this encounter Additional Health Concerns Assessment Noted Time PHQ-9 Depression Total Score: 0 03/18/20 23 10:03 AM CDT documented as of this encounter Care Teams Assembler Fishing Floats Relationship Specialty Start Date End Date Andre Edwards MD [facility] [place] [address] PCP - General FAMILY PRACTICE 05/11/20 Eric Raza MD [facility]. [address] [address] [place] Multiple Launch Rocket System Crewmember CARDIOVASCULAR DISEASE 11/23/19 documented as of this encounter
--- OUTSIDE RECORDS SUMMARY | 2025-02-26 12:04 | XMS_ITS | Encounter Summary ---
Author Organization [facility] Address [facility] [place] [address] Care Team Providers Care Director Of Tax Services Name Role Phone Eric Raza MD Unavailable [phone] Andre Edwards MD Primary Care Provider [phone] Encounter Details Date Type Department Care Team (Late st Contact Info) Description 09/20/2020 Abstract [facility], [address] [address] Matt Sherman MA Social History Tobacco Use Types Packs/Day Years [...] Living Expenses Not hard at all 01/19/2020 Exercise Vital Sign Answer Date Recorde d [...] Sex Assigned at Male 12/29/2024 9:33 AM LEAD SYSTEMS ENGINEER Legal Sex Male 5:00 PM CDT Gender Identity Male 01/01/2022 4:34 AM LEAD SYSTEMS ENGINEER Sexual Orientation Not on file Occupation Industry Job Start Date Job End Date Not on file Not on file Not on file Not on file COVID-19 Exposure Response Date Recorded In the last month, have you been in contact with someone who was confirmed or suspected to have Coronavirus / COVID-19? No / Unsure 09/19/2020 9:51 AM CDT documented as of this encounter Plan of Treatment Upcoming Encounters Date Type Department Care Team (Late st Contact Info) Description 03/08/2025 10:15 AM CDT [facility] [place] [facility] [address] [place] [phone] Eric Raza MD [facility]. [address] [address] 03/12/2025 9:20 AM CDT Office Visit [facility] [address] [place], [place] [id number] Andre Edwards MD [address] [facility] [address] [place] [id number] documented as of this encounter Procedures Procedure Name Priority Date/Time Associated Diagnosis Comments FREE T3 Routine 12/02/2020 THYROXINE, FREE (FT4) Routine 12/02/2020 THYROID STIM HORMONE TSH Routine 12/02/2020 COMPREHENSIVE METABOLIC PANEL Routine 08/18/2020 LIPID PANEL Routine 08/18/2020 CK (CPK) Routine 08/18/2020 documented in this encounter Results * FREE T3 (12/02/2020) FREE T3 2.9 12/02/2020 us Doc [facility] Final Result * THYROID STIM HORMONE, TSH (12/02/2020) TSH 1.529 12/02/2020 us Doc [facility]ORAT[facility] Final Result * THYROXINE, FREE (FT4) (12/02/2020) FREE T4 0.92 12/02/2020 us Doc [facility] Final Result * CK (CPK) (08/18/2020) Pathologist [facility] CPK 134 0 - 200 08/18/2020 us Doc [facility]ORAT[facility] Final Result * LIPID PANEL (08/18/2020) Pathologist [facility] CHOLESTEROL 151 HDL 55 TRIGLYCERIDES 66 LDL (CALCULATED) 83 08/18/2020 us Doc [facility] LABORAT[facility] Final Result * (ABNORMAL) COMPREHENSIVE METABOLIC PANEL (08/18/2020) Pathologist [facility] SODIUM S/P/B 139 POTASSIUM S/P/B 4.1 CO2 27 CHLORIDE S/P/B 103 GLUCOSE 96 mg/dL CALCIUM S/P/B 9.0 BUN 18 CREATININE S/P/B 0.8 0.7 - 1.3 EGFR AFR. AMER. 124(A) <=90 EGFR NON-AFR. AMER. 102(A) <=90 ALKALINE PHOSPHATASE S/P/B 91 ALT 22 AST 24 BILIRUBIN TOTAL S/P/B 0.5 ALBUMIN S/P/B 4.1 3.5 - 5.0 TOTAL PROTEIN S/P/B 7.4 08/18/2020 us Doc [facility] LABORAT[facility] Final Result documented in this encounter Visit Diagnoses Not on filedocumented in this encounter Care Teams Director Of Tax Services Relationship Specialty Start Date End Date Andre Edwards MD [address] [place] [address] [place] [address] PCP - General FAMILY PRACTICE 05/11/20 Eric Raza MD [facility]. [address] [address] [employer] Operator CARDIOVASCULAR DISEASE 11/23/19 documented as of this encounter
--- OUTSIDE RECORDS SUMMARY | 2025-02-26 12:04 | XMS_ITS | Clinical Summary ---
Author Organization [facility] Address [address] [place] [address] Care Team Providers Care Abrasive Water Jet Cutter Operator Name Role Phone Magaly Raza MD Unavailable [phone] Andre Edwards MD Primary Care Provider Allergies Active Allergy Reactions Criticality Noted Date Comments Lisinopril Swelling High 12/24/2018 toungue Penicillins Other (see comment) 03/08/2012 In childhood, does not recall reaction Medications aspirin EC (ASPIRIN EC) 81 MG tablet Take 1 tablet (81 mg total) by mouth daily. Active multivitamin tablet Take 1 tablet by mouth. Active loratadine 10 MG tablet Take 1 tablet (10 mg total) by mouth daily as needed. Active Probiotic Product (PROBIOTIC OR) Take 1 capsule by mouth daily. Active fluticasone propionate 50 MCG/ACT nasal sprayIndications:En vironmental and seasonal allergies 1 spray by Nasal route daily. 16 g 0 Active methIMAzole 10 MG tabletIndications:P ATIENT TAKES 10MG SAT-SAT AND 5MG ON SATURDAY AND SATURDAY Indications: PATIENT TAKES 10MG SAT-SAT AND 5MG ON SATURDAY AND SATURDAY 10mg Mon-Fri 5mg on Sat and Sun 90 tablet 0 Active finasteride (PROSCAR) 5 MG tablet 5 Active amLODIPine (NORVASC) 2.5 MG tabletIndications:B enign essential HTN Take 1 tablet (2.5 mg total) by mouth daily. 90 tablet 1 5 Active carvedilol (COREG) 6.25 MG tabletIndications:B enign essential HTN Take 1 tablet (6.25 mg total) by mouth 2 (two) times daily. 180 tablet 1 5 Active losartan (COZAAR) 100 MG tabletIndications:B enign essential HTN Take 1 tablet (100 mg total) by mouth daily. 90 tablet 1 5 Active gemfibrozil (LOPID) 600 MG tabletIndications:M ixed hyperlipidemia Take 1 tablet (600 mg total) by mouth 2 (two) times daily. 180 tablet 5 Active pravastatin (PRAVACHOL) 80 MG tabletIndications:M ixed hyperlipidemia Take 1 tablet (80 mg total) by mouth nightly at bedtime. 90 tablet 5 Active omeprazole (PRILOSEC) 20 MG capsuleIndications: GERD without esophagitis Take 1 capsule (20 mg total) by mouth 2 (two) times a day. 180 capsule 5 Active Cholecalciferol (VITAMIN D) 50 MCG (1999 UT) CapIndications:Lisa min D deficiency Take 2,000 Int'l Units by mouth daily. 90 capsule 5 Active DULoxetine (CYMBALTA) 60 MG capsuleIndications: GEOVANNY (generalized anxiety disorder),Arthritis ,Cervical radiculopathy,Lumba r radiculopathy,Chron ic midline low back pain with left-sided sciatica Take 1 capsule (60 mg total) by mouth daily. 90 capsule 5 Active acetaminophen (TYLENOL) 500 MG tabletIndications:A rthritis,Cervical radiculopathy,Lumba r radiculopathy,Chron ic midline low back pain with left-sided sciatica Take 2 tablets (1,000 mg total) by mouth 3 (three) times daily as needed for Pain. 30 tablet 5 Active meloxicam (MOBIC) 7.5 MG tabletIndications:A rthritis,Cervical radiculopathy,Lumba r radiculopathy,Chron ic midline low back pain with left-sided sciatica Take 1 tablet (7.5 mg total) by mouth daily. 90 tablet 1 5 Active Active Problems Problem Noted Date Diagnosed Date Chronic midline low back pain with left-sided sc iatica 09/18/2023 Overweight (BMI 25.0-29.9) 03/18/2023 Environmental and seasonal allergies 06/15/2020 Vitamin D deficiency 06/15/2020 GEOVANNY (generalized anxiety disorder) 06/15/2020 GERD without esophagitis 04/01/2019 Diastasis recti 11/19/2018 Benign essential HTN 11/19/2018 Umbilical hernia 11/19/2018 Hyperthyroidism 01/23/2017 Cervical radiculopathy 09/27/2015 Artificial knee joint present 09/09/2013 Overview (03/31/2019): Date Onset: 09/09/2013 Prediabetes 12/24/2012 Personal history of nicotine dependence 12/24/19 13 Overview (03/31/2019): Date Onset: 12/24/2012 Mixed hyperlipidemia Lumbar radiculopathy Arthritis Resolved Problems Problem Noted Date Diagnosed Date Resolved Date Screening for colon cancer 09/28/2024 1 12/05/2023 Screening for colon cancer 09/28/2024 0 12/28/2024 Screening for colon cancer 09/28/2024 0 01/04/2025 Encounter for screening colonoscopy 07/21/2024 07/27/2024 Encounter for screening colonoscopy 07/21/2024 09/14/2024 CAD (coronary artery disease) 04/01/2019 06/15/2020 Sinusitis 11/19/2018 01/23/2021 Hypertension 01/23/2017 06/15/2020 Degenerative disc disease, cervical 10/11/2015 06/15/2020 Spasm 10/11/2015 06/15/2020 Disorder of intervertebral disc 10/06/2015 06/15/2020 Overview (03/31/2019): Date Onset: 10/06/2015 Other abnormal glucose 03/08/201206/15 Hyperglycemia, unspecified 0 06/15/2020 Bilateral shoulder pain 05/26 Encounters Date Type Department Care Team Description 12/31/2024 Telephone [facility] Medical Group Multispecialty Care - [facility] [address], [address] [place] [address] Sergio Weeks MD Results 12/29/2024 12:13 PM HARDWOOD FLOOR INSTALLATION HELPER Anesthesia Event [facility] Surgical Services [address] [place] [address] Alix Callahan CRNA 12/29/2024 12:02 PM HARDWOOD FLOOR INSTALLATION HELPER - 12/29/2024 12:37 PM HARDWOOD FLOOR INSTALLATION HELPER Surgery [facility] Surgical Services [address] [place] [address] Sergio Weeks MD Colonoscopy with Polypectomies 12/29/2024 9:37 AM HARDWOOD FLOOR INSTALLATION HELPER - 12/29/2024 1:10 PM HARDWOOD FLOOR INSTALLATION HELPER Hospital Encounter [facility] Surgical Services [address] [place] [address] Sergio Weeks MD Discharge Disposition: Home or Self Care (Routine Discharge) 12/29/2024 Travel 12/11/2024 9:00 AM HARDWOOD FLOOR INSTALLATION HELPER Office Visit [facility] [address] [place] [address] Andre Edwards MD Follow Up (6 month follow up) 12/11/2024 Travel 12/09/2024 Telephone [facility] [address], [address] [place] [address] Sergio Weeks MD Prior Authorization (Colonoscopy-[id number]) 12/01/2024 11:20 AM HARDWOOD FLOOR INSTALLATION HELPER - 12/01/2024 11:40 AM HARDWOOD FLOOR INSTALLATION HELPER Surgery [facility] [place] [address] [id number] Shahida Garcia MD INJECTION EPIDURAL [id number], [id number] 12/01/2024 10:23 AM HARDWOOD FLOOR INSTALLATION HELPER - 12/01/2024 11:34 AM HARDWOOD FLOOR INSTALLATION HELPER Hospital Encounter [facility] [place] [address] [id number] Shahida Garcia MD Discharge Disposition: Home or Self Care (Routine Discharge) 12/01/2024 Travel from Last 3 Months Immunizations Name Administration Dates Next Due Arexvy Respiratory Syncytial Virus (RSV, adjuvanted) 0.5 mL, PF 06/10/2024 COVID-19 Vaccine (Generic) 01/21/2021,12/24/2020 Fluzone High Dose - >Age 65 (Prefilled Syringe) 09/18/2023,08/24/2021,08/18/2020,2018 Influenza (Generic) 09/03/2018,09/27/2015,2012 Influenza Adult (Generic) 11/09/2024,,08/18/2020,2018,09/09/2013 MODERNA COVID-19 BIVALENT (1 2+), MRNA, LNP-S, PF 08/23/2022 MODERNA COVID-19 (12+) MRNA, LNP-S, PF, 100 MCG/ 0.5 ML DOSE 09/27/2021,01/21/2021,12/24/2020 MODERNA COVID-19 (TEXTURE ARTIST VLADIMIR TAVARES), MRNA, LNP-S, PF, 50 MCG/ 0.25 ML DOSE 04/26/2022 PFIZER COVID-19 (12+) MRNA, LNP-S, PF, PORTIA-SUCROSE, 30 MCG/0.3 ML (COMIRNATY) 06/10/2024 Pneumococcal (Pneumovax 23) 12/01/2020 Pneumococcal (Prevnar 13) 10/26/2019 Shingrix 12/01/2020,09/28/2020 Tdap (Generic) 09/28/2020 Family History Medical History Relation Comments Hypertension Father Stroke Father Arthritis Mother Hypertension Mother Relation Status Comments Father Mother Alive Sister Alive Social History Tobacco Use Types Packs/Day Years Used Date Smoking Tobacco: Former Cigarettes Q uit: 2010 Smokeless Tobacco: Never Tobacco Cessation:Counseling Given: No Alcohol Use Standard Drinks/Week Comments Not Currently [...] Sex Assigned at Male 12/29/2024 9:33 AM HARDWOOD FLOOR INSTALLATION HELPER Legal Sex Male 5:00 PM CDT Gender Identity Male 01/01/2022 4:34 AM HARDWOOD FLOOR INSTALLATION HELPER Sexual Orientation Not on file Occupation Industry Job Start Date Job End Date Not on file Not on file Not on file Not on file Last Filed Vital Signs Vital Sign Reading Time Taken Comments Blood Pressure 128/85 12/29/2024 1:00 PM HARDWOOD FLOOR INSTALLATION HELPER Pulse 82 12/29/2024 9:58 AM HARDWOOD FLOOR INSTALLATION HELPER Temperature 36.3 C (97.3 F) 12/29/2024 9:58 AM HARDWOOD FLOOR INSTALLATION HELPER Respiratory Rate 18 12/29/2024 1:00 PM HARDWOOD FLOOR INSTALLATION HELPER Oxygen Saturation 94% 12/29/2024 1:00 PM HARDWOOD FLOOR INSTALLATION HELPER Inhaled Oxygen Concentration - - Weight 99.8 kg (220 lb) 12/15/2024 11:45 AM HARDWOOD FLOOR INSTALLATION HELPER Height 188 cm (6' 2 ) 12/15/2024 11:45 AM HARDWOOD FLOOR INSTALLATION HELPER Body Mass Index 28.25 12/15/2024 11:45 AM HARDWOOD FLOOR INSTALLATION HELPER Plan of Treatment Upcoming Encounters Date Type Department Care Team (Late st Contact Info) Description 03/08/2025 10:15 AM CDT [facility] [address] [place] [phone] Magaly Raza MD [facility]. [place] [address] [place] [address] 03/12/2025 9:20 AM CDT Office Visit [facility] [address] [place] [address] Andre Edwards MD [address] [place] [address] Health Maintenance Due Date Last Done Comments Hepatitis C 02/15/1970 Annual Medicare Wellness Visit 02/15/2017 COVID-19 Vaccine ( season) 2024 06/10/2024, 09/18/2023, 08/23/2022, Additional history exists PHQ-2 (Physician Gepp) 11/25/2024 06/10/2024 DTaP, Tdap and Td Vaccines (2 - Td or Tdap) 09/28/2030 09/28/2020 Colorectal Cancer Screening Colonoscopy (10 Years) 12/29/2034 12/29/2024, 11/09/2013 Pneumococcal Vaccine: 65+ Years Completed 12/01/2020, 10/26/2019 Zoster Vaccines Completed 12/01/2020, 09/28/2020 RSV Immunization or 60+ Years Completed 06/10/2024 AAA SCREENING Completed 08/25/2024, 07/27, 08/17/2022, Additional history exists Influenza Adult Completed 11/09/2024, 08/26, 08/23/2022, Additional history exists Meningococcal B Vaccine Aged Out No l onger eligible based on patient's age to complete this topic Meningococcal Vaccine Aged Out No leonel meredith eligible based on patient's age to complete this topic RSV Immunizations Under 20 Months Aged Out No longer eligible based on patient's age to complete this topic Medical Devices Implanted Type Area Farm Mechanic Apprentice Device Identifier Shelf Expiration Date Model / Serial / Lot Knee Components Knee Components Bilateral: Knee Plate Plate Spine Cervical Description: plates and scre ws Procedures Procedure Name Priority Date/Time Associated Diagnosis Comments COLONOSCOPY FLX DX W/COLLJ SPEC WHEN PFRMD 12/29/2024 12:08 PM HARDWOOD FLOOR INSTALLATION HELPER Screening for colon cancer PATHOLOGY Routine 12/29/2024 12:00 AM HARDWOOD FLOOR INSTALLATION HELPER NJX AA&/STRD TFRML EPI LUMBAR/SACRAL 1 LEVEL 12/01/2024 11:14 AM HARDWOOD FLOOR INSTALLATION HELPER Lumbar radiculopathy XR PAIN CLINIC C-ARM Today 12/01/2024 10:38 AM HARDWOOD FLOOR INSTALLATION HELPER CTA CHEST Routine 08/25/2024 8:20 AM CDT Aneurysm of ascending aorta without rupture COLONOSCOPY GENERIC (SCAN ORDER) Routine 11/09/2013 12:00 AM HARDWOOD FLOOR INSTALLATION HELPER from Last 3 Months or Most Recently Relevant to Health Maintenance Results * Pathology (12/29/2024 12:00 AM HARDWOOD FLOOR INSTALLATION HELPER) PATHOLOGY [facility] Department of Laboratory Medicine [address] [place] [address] , extension [phone] Pathology Report Surgical Pathology Report Name: ANAYELI RENDON Specimen #: [id number] Age: 3 1950 (Age: 74) Location: [facility] Sex: M Procedure Date: 12/29/2024 Hospital #: [id number] Date Received: 12/30/2024 Date Reported: 12/31/2024 Provider: SERGIO WEEKS MD Source: Colon, descending, polyp Clinical History: Screening for colon cancer. FINAL DIAGNOSIS: Colon polyp, descending, polypectomy: -Fragments of tubular adenoma Gross Description: Received in formalin, labeled with a patient label and as descending polyp are 3 pieces of gordon polypoid tissue ranging from 0.2 to 0.3 cm. The specimen is entirely submitted in cassette 1. Gross examination (when applicable) was performed at [facility], [address] [place] [address]. This case was interpreted and signed out at [facility], [address] [place] [address]. Electronically Signed Out ARASH VALIENTE MD [facility] TISSUE COLON STRUCTURE / Unknown 12/29/2024 12:20 PM HARDWOOD FLOOR INSTALLATION HELPER us Sergio Weeks MD PATHOLOGY/CYTOLOGY ORDERABLES Fi nal Result Performing Organization Address City/State/[facility] Co de Phone Number [facility] [address] [place] [address], [phone] * XR PAIN CLINIC C-ARM (12/01/2024 10:38 AM HARDWOOD FLOOR INSTALLATION HELPER) Narrative Radiology, Technologist - 12/01/2024 10:38 AM HARDWOOD FLOOR INSTALLATION HELPER This report does not contain a radiologist's interpretation. Please review associated procedure and/or operative report. us Shahida Garcia MD GENERAL IMAGING Final Result * CTA CHEST (08/25/2024 8:20 AM CDT) Anatomical Region Laterality Modality Chest Computed Tomogra phy 08/31/2024 6:33 AM CDT Impressions 08/31/2024 6:45 AM CDT IMPRESSION: 1. Stable appearance to ascending aortic aneurysm. No dissection. No pericardial effusion. Referred By: MAGALY RAZA Interpreted By: Matias Urbina MD, 08/31/2024 6:33 AM Narrative 08/31/2024 6:45 AM CDT [facility] [address] [facility]. [place] [id number] EXAMINATION: CTA CHEST WITH CONTRAST EXAM DATE/TIME: 08/25/2024 7:52 AM REASON FOR EXAM: Ascending aortic aneurysm. Follow-up. COMPARISON: 08/19/2023 TECHNIQUE: Computed tomography angiography was performed of the chest after administration of intravenous contrast, 80 cc of Isovue-370, according to routine protocol. Additional 3-D reconstructions and postprocessing were performed independently by the attending radiologist and a separate dedicated 3-D workstation. A dose lowering technique was used for this procedure, which may include, but is not limited to, dose reduction technique, automated exposure control, iterative reconstruction, ALARA (As Low As Reasonably Achievable), or Image Gently techniques. FINDINGS: This exam is slightly limited due to non gated nature of exam VASCULAR FINDINGS: Adequate opacification of the pulmonary arteries. No evidence of acute pulmonary embolism.. Atherosclerotic aorta without dissection. Stable ascending aortic aneurysm measuring 4.5 x 4.5 cm... Grossly similar sinus of Valsalva at 4.4 cm. Stable sinotubular junction of 3.9 cm. Mid descending thoracic aorta measures 3.3 cm and is similar. NONVASCULAR FINDINGS: On lung windows, no suspicious pulmonary lesion, pneumothorax, or pleural effusion. Mild atelectasis in the lung bases. On soft tissue windows, no axillary or supraclavicular lymphadenopathy.. 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 Please see thyroid ultrasound of 07/31/2022. Prior biopsy. On mediastinal windows, no evidence of hilar or mediastinal lymphadenopathy. Heart size normal. No pericardial effusion. Calcified mediastinal and right hilar lymph nodes. Right-sided granuloma. Moderate coronary artery calcifications. Limited evaluation of the upper abdomen demonstrates no acute abnormality.. Partially visualized left-sided renal cysts. On bone windows, no suspicious skeletal lesion or acute compression fracture deformity. Moderate degenerative change in thoracic spine. Procedure Note Matias Urbina MD - 08/31/2024 [facility] [address] [facility] [place] [address] EXAMINATION: CTA CHEST WITH CONTRAST EXAM DATE/TIME: 08/25/2024 7:52 AM REASON FOR EXAM: Ascending aortic aneurysm. Follow-up. COMPARISON: 08/19/2023 TECHNIQUE: Computed tomography angiography was performed of the chestafter administration of intravenous contrast, 80 cc of Isovue-370,according to routine protocol. Additional 3-D reconstructions andpostprocessing were performed independently by the attending radiologistand a separate dedicated 3-D workstation. A dose lowering technique was used for this procedure, which may include,but is not limited to, dose reduction technique, automated exposurecontrol, iterative reconstruction, ALARA (As Low As ReasonablyAchievable), or Image Gently techniques. FINDINGS: This exam is slightly limited due to non gated nature of exam VASCULAR FINDINGS: Adequate opacification of the pulmonary arteries. No evidence of acutepulmonary embolism.. Atherosclerotic aorta without dissection. Stable ascending aorticaneurysm measuring 4.5 x 4.5 cm... Grossly similar sinus of Valsalva at4.4 cm. Stable sinotubular junction of 3.9 cm. Mid descending thoracicaorta measures 3.3 cm and is similar. NONVASCULAR FINDINGS: On lung windows, no suspicious pulmonary lesion, pneumothorax, or pleuraleffusion. Mild atelectasis in the lung bases. On soft tissue windows, no axillary or supraclavicular lymphadenopathy.. 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 Please seethyroid ultrasound of 07/31/2022. Prior biopsy. On mediastinal windows, no evidence of hilar or mediastinallymphadenopathy. Heart size normal. No pericardial effusion. Calcifiedmediastinal and right hilar lymph nodes. Right-sided granuloma. Moderate coronary artery calcifications. Limited evaluation of the upper abdomen demonstrates no acuteabnormality.. Partially visualized left-sided renal cysts. On bone windows, no suspicious skeletal lesion or acute compressionfracture deformity. Moderate degenerative change in thoracic spine. IMPRESSION: 1. Stable appearance to ascending aortic aneurysm. No dissection. Nopericardial effusion. Referred By: MAGALY RAZA Interpreted By: Matias Urbina MD, 08/31/2024 6:33 AM us Magaly Raza MD CT Final Resul t * COLONOSCOPY (11/09/2013 12:00 AM HARDWOOD FLOOR INSTALLATION HELPER) 11/09/2013 us Documents Scanned SCANNING Final Result Performing Organization Address City/State/[facility] Co de Phone Number [facility] from Last 3 Months or Most Recently Relevant to Health Maintenance Insurance MEDICARE [facility] MEDICARE Advance Directives Documents on File Type Date Recorded Patient Tactical Response Group Officer Expl anation Advance Directives and Living Will 03/24/2018 12:00 AM Inez Rendon ADVANCED DIRECTIVES Advance Directives and Living Will 07/08/2015 12:00 AM ADVANCED DIRECTIVES Advance Directives and Living Will 03/01/2015 12:00 AM ADVANCED DIRECTIVES Advance Directives and Living Will 02/09/2015 12:00 AM ADVANCED DIRECTIVES Advance Directives and Living Will 01/31/2015 12:00 AM ADVANCED DIRECTIVES Advance Directives and Living Will 07/06/2014 12:00 AM ADVANCED DIRECTIVES Advance Directives and Living Will 11/09/2013 12:00 AM ADVANCED DIRECTIVES Care Teams Abrasive Water Jet Cutter Operator Relationship Specialty Start Date End Date Andre Edwards MD [address] [place] [address] [place] [address] PCP - General FAMILY PRACTICE 05/11/20 Magaly Raza MD [facility]. [address] [address] [place] Rug Cleaner CARDIOVASCULAR DISEASE 11/23/19
--- OUTSIDE RECORDS SUMMARY | 2025-02-26 12:04 | XMS_ITS | Data Portability ---
Author Organization [place] [employer], Main Office Address [address] [place] [address] Care Team Providers Care Display Fabrication Supervisor Name Role Phone JOE VASQUEZ Primary Care Provider JOE VASQUEZ Referring Provider [phone] Assessment Encounter Date Assessment Date Assessment LastModified by Organization Details LastModified Time 06/18/2023 06/18/2023 73-year-old male returns to clinic concerning bilateral cubital tunnel symptoms. At his last visit received corticosteroid injections for trigger fingers and was recommended conservative treatment for cubital tunnel. since his last visit he has noticed exacerbation of his pain especially at night and some numbness in his small fingers. We discussed possible treatment options including continued conservative treatment, further evaluation with an EMG nerve conduction study to determine the level of nerve compression, and surgical decompression. At this time we will proceed with further evaluation with an EMG nerve conduction study and he will follow up in the clinic afterwards with Dr. Loja for further discussion. [email or web address] Not available 06/18/2023 10:17:46 08/01/2023 08/01/2023 Patient returns cubital tunnel problems her left greater than right. 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 Both in the 1st interspace as well as 5th. He has significant and severe car cubital tunnel problems. Based on this he would like to consider surgery. We discussed transposition versus release will proceed with release of this nerve is unstable. I told him with the amount of damage she has in his nerve there is a chance he may not get much relief at all. He understands. His EMG is being held up because [facility] got hacked and we areunable to get any reports. [email or web address] Not available 08/01/2023 10:11:44 08/13/2023 08/13/2023 Patient returns status post cubital cubital tunnel release left. Incision clean he has got a little drainage. I Steri-Stripped closed we will place him on some antibiotics to protect him. He has already lost the the burning that he had. That seams to be gone. The function and sensation may take it will take time to come back and may not get complete the covering fact he wants because the severe compression that he has. I will see him back in a week for suture removal if he has any changes or problems he will call discussed. [email or web address] Not available 08/13/2023 15:30:11 08/20/2023 08/20/2023 Patient returns sutures out today improves his improving neurologically just a little bit. He had a severe compression of the ulnar nerve and I told him before surgery that it may not come back and indeed it may not he is certainly better as far as sensation and pain we will see if it continues to get better with time he is draining a little bit high Steri-Strips he is on antibiotics if he gets worse or changes he is instructed to call. Follow-up in a week. [email or web address] Not available 08/20/2023 14:42:55 04/01/2024 04/01/2024 74-year-old male presents for follow-up of his right hand. He has a history of small joint arthritis as well as a trigger finger on the ring finger which was previously treated with Dr. Guaman by injections. His last 1 was about a year ago last spring. He reports the finger has been bothering him again and causing more pain. He is looking for repeat injection. He denies any catching or locking, but has pain with fully extending it. It is located directly over the A1 raysa. Review of systems per patient questionnaire Physical exam: He is tenderness to palpation of the A1 raysa. He is not quite able to fully straighten it and has pain in the same area with that. He is able to make a closed fist. X-rays were reviewed, demonstrating arthritis at the thumb CMC, multiple small joints including the thumb and index MCP joints. He has some degenerative changes at the ring finger MCP as well. He is having recurrence of trigger finger symptoms. We offered a repeat cortisone injection and he wanted to proceed with that. He tolerated well and had some immediate improvement afterwards. He may follow-up as needed. We discussed that if his hand arthritis is bothering him, we may refer him back to Dr. Guaman for surgery for those. He is in agreement with the plan. [email or web address] Not available 04/01/2024 16:28:08 Plan of Treatment Reminders Order Date Submit Date Provider Last Modified By Organization Details Last Modified Time Details Appointments None recorded. Lab BMP, serum or plasma - Please fax results to DX Hypertensi on 2022 023 [facility] In-Office Order, Internal Use Only DO Not Attach Compendium DO Not Attach Compendium, Do Not Delete/merge, [id number] 3 16:39:30 Referral None recorded. Procedures injection/ aspiration joint/burs a (PROC) 2023 024 [email or web address] In-Office Order, Internal Use Only DO Not Attach Compendium DO Not Attach Compendium, Do Not Delete/merge, [id number] 11:33:42 Surgeries cubital tunnel release (SURG) 2022 023 [email or web address] [facility], [address] [facility] [place], [address], 3 14:55:09 Imaging XR, hand, 3 or more view 2023 024 [facility] [place], [address], [place], [address], 4 09:14:39 electrocar diogram - Please fax results to Dx hypertensi on 2022 023 [facility] In-Office Order, Internal Use Only DO Not Attach Compendium DO Not Attach Compendium, Do Not Delete/merge, [id number] 3 14:50:45 XR, elbow, 3 or more view 2022 023 [email or web address] [facility] [place], [address], [place], [address], 3 12:29:22 electromyo gram + nerve conduction study - LOCATION [facility], PLEASE CALL PATIENT TO SCHEDULE 2022 023 J[facility] Condution Scheduling, [address] , [place], [address], 3 21:07:15 Medication Orders bupivacain e HCl 0.5 % (5 mg/mL) injection solution [address]/Pharmacy [id number], [address] [place], [address], 4 17:16:55 Kenalog 10 mg/mL suspension for injection [address]/Pharmacy [facility]6930, [address] [place], [address], 4 17:16:55 doxycyclin e hyclate 100 mg capsule 2022 023 [email or web address] 1 [facility]/Pharmacy #[id number], [address] [place], [address], 4 15:00:39 Patient TargetsNo targets recorded. Patient InstructionsNo instructions recorded. Reason for Referral None Reported. Results Created Date Observation Date Name Description Value Unit Range Abnormal Flag Note LastModifiedBy Organization Detail LastModifiedTime 06/18/20 23 XR, elbow , 3 or more view No observ ation record ed. [email or web address] [facility] [place] [address], [place], [address], 06/18/2023 12:29:21 08/02/20 23 elect tyree blanc am No observ ation record ed. [email or web address] In-Office Order Internal Use Only DO Not Attach Compendium DO Not Attach Compendium, Do Not Delete/merge, [id number] 08/02/2023 14:50:45 08/22/20 23 08/21/2023 elect romyo gram + nerve condu ction study No observ ation record ed. Not Available 12/2022 14:25:17 08/22/20 23 08/21/2023 elect romyo gram + nerve condu ction study No observ ation record ed. Not Available 12/2022 14:25:18 08/26/20 23 08/21/2023 elect romyo gram + nerve condu ction study No observ ation record ed. Not Available 01/2023 15:13:03 04/01/20 24 XR, hand, 3 or more view No observ ation record ed. [facility] [place] [address], [place], [address], 04/01/2024 15:06:42 Result Notes None recorded. Problems Name Problem SNOMED Code Status Onset Date Resolution Date Notes Provider Name and Address Organization Details Recorded Time Disorder of shoulder 719822237 Active Not Available [facility] 3 02:53:11 Pain of bilateral hands 3815639292294 9109 Active 2021 Not Available [facility] 3 02:53:11 Bilateral trigger fingers 0466920107088 9109 Active 2021 Not Available [facility] 3 02:53:11 Radiothera py follow-up 619960585 Active Not Available [facility] 3 02:53:11 Full thickness rotator cuff tear 374029435 Active Not Available [facility] 3 02:53:11 Osteoarthr itis of knee 664155061 Active Not Available [facility] 3 02:53:11 Pain in right hand 5239809539413 09 Active 2021 Not Available [facility] 3 02:53:11 Tibialis tendinitis 81448205 Active Not Available [facility] 3 02:53:11 Trigger finger of right hand 6849254760676 9101 Active 2022 Sherlyn Petit, [employer] null, [place] [facility] 3 15:10:25 Osteoarthr itis 781305578 Active 2022 Sherlyn Marisabel [employer] null, [facility] [employer] [facility] 3 15:10:32 Elbow joint pain 381470548 Active 2022 Sherlyn Marisabel [employer] null, [facility] [employer] [facility] 3 08:46:45 Ulnar nerve entrapment at elbow 390363231 Active 2022 Diane Lo null, [facility] [employer] [facility] 3 09:18:43 Ulnar nerve entrapment at elbow 770066102 Active 2022 Mason Loja MD [address] [place], [address] , [facility] [employer] [facility] 3 07:16:23 Problem Notes None recorded. Procedures Surgical History Date Name Laterality Status Provider Name and Address Organization Details Recorded Time 4 Ortho - Cortisone Injection completed Reece Martinez MD [address], [place], [address], [facility] [employer] [facility] 04/01/2024 16:20:54 Imaging Results Imaging Date Name Status LastModified by Organization Details LastModified Time 06/18/2023 XR, elbow, 3 or more view completed [email or web address] [facility] [place] [address], [place], [address], 06/18/2023 12:29:21 08/02/2023 electrocardiogram completed [email or web address] In-Offi ce Order Internal Use Only DO Not Attach Compendium DO Not Attach Compendium, Do Not Delete/merge, [id number] 08/02/2023 14:50:45 08/21/2023 electromyogram + nerve conduction study completed Information not available 08/26/2023 14:25:17 08/21/2023 electromyogram + nerve conduction study completed Information not available 08/26/2023 14:25:18 08/21/2023 electromyogram + nerve conduction study completed Information not available 08/27/2023 15:13:03 04/01/2024 XR, hand, 3 or more view completed [facility] [place] [address], [place], [address], 04/01/2024 15:06:42 Procedure Notes None recorded. Medical Equipment None Reported. Allergies Allergen ID Allergen Name Allergen Category Reaction Reaction Severity Criticality Documentation Date Start Date Code Code System Note Provider Name and Address Organization Details Recorded Time 4640 Product containin g penicilli n (product) medicatio n rash Not available Not available 01/23/2023 25523 8001 SNOMED Not Available [facility] 3 03:00:15 4641 lisinopri l medicatio n Not available Not available Not available 01/23/2023 19825 RxNorm damionyrn en daina e Not Available [facility] 3 03:00:15 Medications Name Sig Start Date Stop Date Status Note LastModified by Organization Details LastModified Time losartan 50 mg tablet 10/18 completed Not Available Not Available Not Available carvedilol 6.25 mg tablet TAKE 1 TABLET BY MOUTH TWICE A DAY active Not Available Not Available No t Available prednisone 10 mg tablet 04/01 completed Not Available Not Available Not Available doxycycline hyclate 100 mg capsule TAKE 1 CAPSULE BY MOUTH TWICE A DAY FOR 10 DAYS 04/01 completed Not Available Not Available Not Available clindamycin HCl 300 mg capsule TAKE 2 CAPSULES BY MOUTH STAT, THEN 1 CAP 3 TIMES DAILY active Not Available Not Available No t Available atorvastati n 10 mg tablet TAKE 1 TABLET BY MOUTH EVERYDAY AT BEDTIME 04/01 completed Not Available Not Available Not Available pravastatin 40 mg tablet TAKE 1 TABLET BY MOUTH NIGHTLY AT BEDTIME 04/01 completed Not Available Not Available Not Available hydrocodone 5 mg-acetamin ophen 325 mg tablet active Not Available Not Available No t Available meloxicam 15 mg tablet TAKE 1 TABLET (15 MG TOTAL) BY MOUTH DAILY. 2023 active Not Available Not Available Not Avai lable bupivacaine HCl 0.5 % (5 mg/mL) injection solution in office 2023 active Not Available Not Available Not Avai lable prednisone 20 mg tablet TAKE 1 TABLET BY MOUTH 3 TIMES A DAY FOR 5 DAYS 09/02 completed Not Available Not Available Not Available clindamycin HCl 150 mg capsule TAKE 1 CAPSULE BY MOUTH 4 TIMES A DAY 04/01 completed Not Available Not Available Not Available amlodipine 2.5 mg tablet Take by oral route for 90 days. active Not Available Not Available No t Available acetaminoph en 300 mg-codeine 30 mg tablet TAKE 1 TABLET BY MOUTH EVERY 6 HOURS active Not Available Not Available No t Available amlodipine 5 mg tablet TAKE 1 TABLET (5 MG TOTAL) BY MOUTH DAILY. 04/01 completed Not Available Not Available Not Available meloxicam 7.5 mg tablet Take 1 tablet every day by oral route. 11/03 completed Not Available Not Available Not Available pravastatin 80 mg tablet TAKE 1 TABLET BY MOUTH NIGHTLY AT BEDTIME. active Not Available Not Available No t Available tamsulosin 0.4 mg capsule TAKE 1 CAPSULE BY MOUTH AT BEDTIME active Not Available Not Available No t Available Kenalog 10 mg/mL suspension for injection in office 2023 active [facility]: 0003- 0494- 20 Not Available Not Available Not Available gemfibrozil 600 mg tablet TAKE 1 TABLET BY MOUTH TWICE A DAY active Not Available Not Available No t Available hydrocodone 7.5 mg-acetamin ophen 325 mg tablet Take 1 tablet every 6 hours by oral route as needed. active Not Available Not Available No t Available cephalexin 500 mg capsule TAKE 1 CAPSULE BY MOUTH 4 TIMES A DAY active Not Available Not Available No t Available oseltamivir 75 mg capsule 09/16 completed Not Available Not Available Not Available ranitidine 150 mg tablet TAKE 1 TABLET BY MOUTH TWICE A DAY 09/02 completed Not Available Not Available Not Available ibuprofen 400 mg tablet 04/01 completed Not Available Not Available Not Available methimazole 5 mg tablet 10/06 completed Not Available Not Available Not Available sertraline 25 mg tablet TAKE 2 TABLETS BY MOUTH EVERY DAY 04/09 completed Not Available Not Available Not Available omeprazole 20 mg capsule,del ayed release TAKE 1 CAPSULE BY MOUTH EVERY DAY active Not Available Not Available No t Available gabapentin 100 mg capsule TAKE 1 CAPSULE BY MOUTH TWICE A DAY active Not Available Not Available No t Available azelastine 137 mcg (0.1 %) nasal spray 10/06 completed Not Available Not Available Not Available oxycodone-a cetaminophe n 7.5 mg-325 mg tablet TAKE 1 TABLET BY MOUTH EVERY 6 HOURS active Not Available Not Available No t Available methimazole 10 mg tablet TAKE 1 TABLET BY MOUTH DAILY SATURDAY- AND 1/2 TABLET ON SATURDAY AND SATURDAY active Not Available Not Available No t Available ipratropium bromide 42 mcg (0.06 %) nasal spray 10/18 completed Not Available Not Available Not Available lisinopril 40 mg tablet 09/16 completed Not Available Not Available Not Available losartan 100 mg tablet TAKE 1 TABLET BY MOUTH EVERY DAY active Not Available Not Available No t Available sertraline 50 mg tablet TAKE 1 TABLET BY MOUTH EVERY DAY 04/01 completed Not Available Not Available Not Available finasteride 5 mg tablet TAKE 1 TABLET BY MOUTH EVERY DAY active Not Available Not Available No t Available oxycodone 5 mg tablet TAKE 1 TABLET BY MOUTH EVERY 12 HOURS NEEDED FOR PAIN 04/09 completed Not Available Not Available Not Available rosuvastati n 10 mg tablet active Not Available Not Available Not Available duloxetine 20 mg capsule,del ayed release TAKE 2 CAPSULES BY MOUTH EVERY DAY 04/01 completed Not Available Not Available Not Available duloxetine 60 mg capsule,del ayed release TAKE 1 CAPSULE BY MOUTH EVERY DAY active Not Available Not Available No t Available Boostrix Tdap 2.5 Lf unit-8 mcg-5 Lf/0.5 mL intramuscul ar syringe 10/06 completed Not Available Not Available Not Available loratadine active Not Available Not Av ailable Not Available aspirin 2019 active Not Available Not Available Not Avai lable lidocaine (PF) 10 mg/mL (1 %) injection solution In office injection administe red by the provider 11/03 completed [facility]: [phone]- [phone] Not Available Not Available Not Available Probiotic active Not Available Not Michelle ilable Not Available ropivacaine (PF) 5 mg/mL (0.5 %) injection solution in office 04/01 completed [facility] [phone] -[phone] Not Available Not Available Not Available Shingrix (PF) 50 mcg/0.5 mL intramuscul ar suspension, kit 05/08 /2024 completed Not Available Not Available Not Available Fluzone High-Dose Quad 2020-21 (PF) 240 mcg/0.7 mL IM syringe PHARMACIS T ADMINISTE RED IMMUNIZAT ION ADMINISTE RED AT TIME OF DISPENSIN G 10/06 completed Not Available Not Available Not Available Vitals Date Recorded Body height Pain severity - 0-10 verbal numeric rating [Score] - Reported Provider Name and Address Organization Details Last Updated DateTime 06/18/2023 187.96 cm 10 Sherlyn Marisabel [facility] [employer] [facility] 06/18/2023 08:45:50 Date Recorded Body height Body mass index (BMI) Body weight Provider Name and Address Organization Details Last Updated DateTime 08/01/2023 187.96 cm 31.1 kg/m2 568675.35 g Carlene Reid ATC L [facility] [employer] [facility] 08/01/2023 09:47:13 Date Recorded Body height Body mass index (BMI) Body weight Provider Name and Address Organization Details Last Updated DateTime 08/13/2023 187.96 cm 31.1 kg/m2 300812.35 cruz Rojo Yue [facility] [employer] [facility] 08/13/2023 14:59:34 Date Recorded Body height Body mass index (BMI) Body weight Provider Name and Address Organization Details Last Updated DateTime 08/20/2023 187.96 cm 31.1 kg/m2 786430.35 g Adore Scott [facility] [employer] [facility] 08/20/2023 14:34:50 Date Recorded Body height Body mass index (BMI) Body weight Provider Name and Address Organization Details Last Updated DateTime 04/01/2024 187.96 cm 30.8 kg/m2 182046.17 MARSHALL Fermin [facility] [employer] [facility] 04/01/2024 14:58:28 Social History Question Answer Notes LastModified by Organizat ion Details LastModified Time Tobacco Smoking Status Former Smoker MARSHALL Hill [facility] [employer] [facility] 04/01/2024 15:04:43 What Is Your Level Of Alcohol Consumption? Occasional Information not available 04/01/2024 When Did You Quit Smoking? 11-15yearssince lastcigarette Information not available 04/01/2024 What Was The Date Of Your Most Recent Tobacco Screening? 04/09/2023 [email or web address] Information not available 04/09/2023 Sex: Unknown Functional Status None recorded. Mental Status None recorded. Family History Relationship Description Onset Age of this Age Resolved Age Notes LastModified by Organization Details LastModified Time Father Diabetes mellitus [id number] Not available 01/23/2023 02:47:44 Unspecified Relation Kidney disease Not available 06/2024 15:04:04 Medical History Condition Response ARTHRITIS Y USE OF BLOOD THINNERS Y Past Encounters Encounter ID Performer Location Encounter Start Date Encounter Closed Date Diagnosis/Indication Diagnosis SNOMED-CT Code Diagnosis ICD10 Code Diagnosis Note [id number] [facility] [place] [address] [place] [address] 02/21/2021 00:00:00 02/21/2021 12:14:53 [id number] [facility] [place] [address] [place] [address] 05/23/2021 00:00:00 05/23/2021 10:07:18 [id number] [facility] [place] [address] [place] [address] 07/21/2021 00:00:00 07/21/2021 11:07:14 [id number] [facility] [place] [address] [place] [address] 08/22/2021 00:00:00 08/22/2021 11:48:10 [id number] [facility] [place] [address] [place] [address] 11/03/2021 00:00:00 11/03/2021 10:55:54 [id number] [facility] [place] [address] [place] [address] 01/05/2022 00:00:00 01/05/2022 10:17:30 [id number] [facility] [place] [address] [place] [address] 02/23/2022 00:00:00 02/23/2022 10:45:37 [id number] [facility] [place] [address] [place], [place] [address] 05/23/2022 00:00:00 05/23/2022 17:19:16 [id number] [facility] [place] [address] [place], [place] [address] 08/28/2022 00:00:00 08/28/2022 10:03:25 [id number] DELILAH Silver [facility] [place] [address] [place] [address] 04/09/2023 14:57:13 04/09/2023 15:45:31 Pain of bilateral hands 1439608446 8640274 M79.641 Trigger fi nger of right hand 8370032194 7332749 M65.30 Osteoarthritis 423930509 M19.049 [id number] DELILAH Silver [facility] [place] [address] [place], [place] [address] 06/18/2023 08:42:23 06/18/2023 09:21:16 Elbow joint pain 055974070 M25.529 Ulnar nerv e entrapment at elbow 921666830 G56.21 G56.22 [id number] Mason Loja MD [facility] [place] [address] [place], [place] [address] 08/01/2023 09:38:22 08/01/2023 10:35:18 Elbow joint pain 860853488 M25.529 Ulnar nerv e entrapment at elbow 572527554 G56.21 G56.22 Pre-surger y evaluation 280537082 Z01.288 [id number] Mason Loja MD [facility] [place] [address] [place], [place] [address] 08/13/2023 14:56:55 08/13/2023 15:21:33 Elbow joint pain 449885904 M25.529 Ulnar nerv e entrapment at elbow 774469355 G56.21 G56.22 Postoperative visit 1836 56597 Z09 [id number] Mason Loja MD [facility] [place] [address] [place] [address] 08/20/2023 14:32:37 08/20/2023 14:50:18 Ulnar nerve entrapment at elbow 947689682 G56.21 G56.22 [id number] Reece Martinez MD [facility] [place] [address] [place] [address] 04/01/2024 14:42:48 04/01/2024 15:24:22 Pain in right hand 5256672050 40802 M79.641 Health Concerns Section Related Observation LastModified by Organization Detai ls LastModified Time None Recorded Concern Status LastModified by Organization Details LastModified Time None Recorded Advance Directives Directive None Recorded Payers Encounter Date Sequence Insurance Name Policy Number Policy Leyva Covered Member ID Leyva Member ID Guarantor Name 06/18/2023 1 [place] Reece Rendon [id number] Reece Rendon 06/18/2023 2 [employer] (MEDICARE SUPPLEMENT) Reece Rendon [id number] Reece Rendon 08/01/2023 1 [place] Reece Rendon [id number] Reece Rendon 08/01/2023 2 [employer] (MEDICARE SUPPLEMENT) Reece Rendon [id number] Reece Rendon 08/13/2023 1 [place] Reece Rendon [id number] Reece Rendon 08/13/2023 2 [employer] (MEDICARE SUPPLEMENT) Reece Rendon [id number] Reece Rendon 08/20/2023 1 [place] Reece Rendon [id number] Reece Rendon 08/20/2023 2 [employer] (MEDICARE SUPPLEMENT) Reece Rendon [id number] Reece Rendon 04/01/2024 1 [place] Reece Rendon [id number] Reece Rendon 04/01/2024 2 [employer] (MEDICARE SUPPLEMENT) Reece Rendon [id number] Reece Rendon Notes Date Note Type Note Provider Name and Address Organization Details Recorded Time 06/18/2023 text/html 73-year-old male returns to the clinic concerning bilateral elbow pain. At his last visit on 04/09/2023 he was provided with corticosteroid injections for trigger fingers and conservative treatment options were discussed concerning possible cubital tunnel symptoms. he states that since his last visit, his numbness in the bilateral small fingers has worsened and he is now having nocturnal paresthesias and pain in the left. he notes several occasions when he hits his elbow that he has tingling in his pinky. he also notes some mild tenderness over the left lateral epicondyle after lifting 6 batteries. DELILAH Silver [address], [place], [address], [facility] 06/18/2023 12:29:29 08/01/2023 text/html 73-year-old male returns to the clinic concerning bilateral elbow pain. At his last visit on 04/09/2023 he was provided with corticosteroid injections for trigger fingers and conservative treatment options were discussed concerning possible cubital tunnel symptoms. he states that since his last visit, his numbness in the bilateral small fingers has worsened and he is now having nocturnal paresthesias and pain in the left. he notes several occasions when he hits his elbow that he has tingling in his pinky. he also notes some mild tenderness over the left lateral epicondyle after lifting 6 batteries. Mason Loja MD [address], [place], [address], [facility] 08/01/2023 10:11:48 08/13/2023 text/html Patient returns status post cubital tunnel release left. He still has numbness and tingling although it is a bit better and the burning is gone. He is worried because he had a little drainage from the incision. Mason Loja MD [address], [place], [address], [employer] 08/13/2023 15:30:42 08/20/2023 text/html Patient returns status post cubital tunnel release left. He still has numbness and tingling although it is a bit better and the burning is gone. He is worried because he had a little drainage from the incision. Mason Loja MD [address] [place] [address], [facility] [address], [place], [address], [place] [facility] 08/20/2023 14:43:10
[2025-02-26 13:19] LABS: Free T4 Free Thyroxine 0.91 ng/dL (0.78-2.19)
== END 2025-02-26 11:58 | disposition home or self-care (01) ==
PROVIDERS: PCP Family Medicine; Visit Provider Internal Medicine Endocrinology, Diabetes & Metabolism
DX: E05.90 Thyrotoxicosis, unspecified without thyrotoxic crisis or storm (principal)
CPT/HCPCS: 36415; 84439; 84443

== ENCOUNTER 2025-05-03 10:58 | Outpatient (CLI) | payer MEDICARE, OTHER, SELFPAY ==
--- NOTE | ~2025-05-03 | XR_ITS ---
Right Hand Technique: PA, oblique, and lateral views were obtained. Clinical History: Pain Findings: No acute fracture or dislocation is seen. There is severe degenerative change of the first CMC joint and interphalangeal joint of the thumb. There is moderate to advanced degenerative change o f the first, second, and third MCP joints. There are moderate degenerative changes scattered througho ut the interphalangeal joints of the fingers. Soft tissues are unremarkable. Impression: Polyarticular osteoarthritis, as detailed above. Reviewed, dictated and finalized at location M. Impression: Polyarticular osteoarthritis, as detailed above.
--- NOTE | ~2025-05-03 | XR_ITS ---
Left Hand Technique: PA, oblique, and lateral views were obtained. Clinical History: Pain Findings: No acute fracture or dislocation is seen. There is severe degenerative change of the first CMC joint and interphalangeal joint of the thumb. There is moderate to advanced degenerative change o f the first, second, and third MCP joints. There are mild to moderate degenerative changes scattered at the interphalangeal joints of the fingers. Soft tissues are unremarkable. Impression: Polyarticular osteoarthritis, as detailed above. Reviewed, dictated and finalized at location M. Impression: Polyarticular osteoarthritis, as detailed above.
--- OUTSIDE RECORDS SUMMARY | 2025-05-03 12:35 | XMS_ITS | Clinical Summary ---
Author Organization [facility] Address [address] [place] [address] Care Team Providers Care Stitch Rubber Name Role Phone Andre Edwards MD Primary Care Provider [phone] Source Comments [facility],non-owned Affiliates and Associated Physician Practices is amultiple site organization consisting of ambulatory clinics and hospital sitesin [place], [place], [place]. This disclosure is being madepursuant to the Care Everywhere program and may not contain all information available regarding this patient. Last updated 18.[employer] [facility] Allergies Active Allergy Reactions Criticality Noted Date Comments Lisinopril Swelling High 12/24/2018 tongue Penicillins Rash Medium 03/08/2012 In childhood, does not recall reaction Medications * Be aware that medications may not be up to date on this document. Alwaysverify current medications with the patient. amLODIPine (Norvasc) 2.5 MG tablet Take by oral route for 90 days. 4 Active aspirin EC (Ecotrin) 81 MG tablet Take 1 (one) tablet by mouth once daily Active BUPivacaine (Marcaine) 0.5 % injection in office 4 Active carvedilol (Coreg) 6.25 MG tablet Take 1 (one) tablet by mouth 2 times daily 4 Active Cholecalciferol (Vitamin D) 50 MCG (1999) capsule Take 1 (one) capsule by mouth once daily 4 Active DULoxetine (Cymbalta) 60 MG capsule Take 1 (one) capsule by mouth once daily 4 Active finasteride (Proscar) 5 MG tablet Take 1 (one) tablet by mouth once daily Active gabapentin (Neurontin) 100 MG capsule Take 1 (one) capsule by mouth two times daily at 4am and 4pm Active gemfibrozil (Lopid) 600 MG tablet Take 1 (one) tablet by mouth 2 times daily 4 Active loratadine (Claritin) 10 MG tablet Take 1 (one) tablet by mouth once daily as needed Active losartan (Cozaar) 100 MG tablet Take 1 (one) tablet by mouth once daily 4 Active meloxicam (Mobic) 15 MG tablet TAKE 1 TABLET (15 MG TOTAL) BY MOUTH DAILY. 4 Active methIMAzole (Tapazole) 10 MG tablet TAKE 1 TABLET BY MOUTH DAILY SATURDAY-SATURDAY AND 1/2 TABLET ON SATURDAY AND SATURDAY Active Multiple Vitamin (Multi-Vitamins ) TABS Take 1 (one) tablet by mouth Active NA-K-MG sulfates (Suprep) 17.5-3.13-1.6 GM/177ML solution TAKE 177ML BY MOUTH EVERY 12 HOURS FOR 1 DAY TAKE DIRECTED IN THE INSTRUCTIONS 4 Active nystatin (Mycostatin) 452971 UNIT/ML suspension SWISH & GARGLE & SWALLOW 4 ML BY MOUTH 4 TIMES A DAY FOR 14 DAYS 4 Active omeprazole (PriLOSEC) 20 MG capsule Take 1 (one) capsule by mouth 2 times daily 4 Active pravastatin (Pravachol) 80 MG tablet TAKE 1 TABLET BY MOUTH NIGHTLY AT BEDTIME. 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
--- OUTSIDE RECORDS SUMMARY | 2025-05-03 12:35 | XMS_ITS | Data Portability ---
Author Organization [place] [facility] [place] [facility], Main Office Address [address] [place] [address] Care Team Providers Care Soa Integration Developer Name Role Phone JOE VASQUEZ Primary Care Provider JOE VASQUEZ Referring Provider Assessment Encounter Date Assessment Date Assessment LastModified [...] His EMG is being held up because [facility] got hacked and we areunable to [...] or plasma - Please fax results to [phone] DX Hypertensi on 2022 023 [facility] In-Office Order, Internal Use Only DO Not Attach Compendium DO Not Attach Compendium, Do Not Delete/merge, [id number] 3 16:39:30 Referral None recorded. Procedures injection/ aspiration joint/burs a (PROC) 2023 024 [email or web address] In-Office Order, Internal Use Only DO Not Attach Compendium DO Not Attach Compendium, Do Not Delete/merge, [id number] 4 11:33:42 Surgeries cubital tunnel release (SURG) 2022 023 [email or web address] [facility], [address] [place], [address], 3 14:55:09 Imaging XR, hand, 3 or more view 2023 024 [facility] [place], [address], [place], [address], 4 09:14:39 electrocar diogram - Please fax results to Dx hypertensi on 2022 023 [facility] In-Office Order, Internal Use Only DO Not Attach Compendium DO Not Attach Compendium, Do Not Delete/merge, [id number] 14:50:45 XR, elbow, 3 or more view 2022 023 [email or web address] [facility] [place], [address], [place], [address], 3 12:29:22 electromyo gram + nerve conduction study - LOCATION [facility], PLEASE CALL PATIENT TO SCHEDULE 2022 023 [facility] Scheduling, [address] , [place], [address], 3 21:07:15 Medication Orders bupivacain e HCl 0.5 % (5 mg/mL) injection solution [address]/Pharmacy [facility]69[facility], [address] [place], [address], 4 17:16:55 Kenalog 10 mg/mL suspension for injection [address]69[address], [address] [place], [address], 4 17:16:55 doxycyclin e hyclate 100 mg capsule 2022 023 [email or web address] 1 [facility]/Pharmacy #6930, [address] [place], [address], 4 15:00:39 Patient TargetsNo targets recorded. Patient InstructionsNo instructions recorded. Reason for Referral None Reported. Results Created Date Observation Date Name Description Value Unit Range Abnormal Flag Note LastModifiedBy Organization Detail LastModifiedTime 06/18/20 23 XR, elbow , 3 or more view No observ ation record ed. [email or web address] [facility] [place] [address], [place], [address], 06/18/2023 12:29:21 08/02/20 23 elect tyree blanc am No observ ation record ed. [email or web address] In-Office Order Internal Use Only DO Not Attach Compendium DO Not Attach Compendium, Do Not Delete/merge, [id number] 08/02/2023 14:50:45 08/22/20 23 08/21/2023 elect romyo [...] more view No observ ation record ed. [facility] [place] [address], [place], [address], 04/01/2024 15:06:42 Result Notes None recorded. Problems Name Problem SNOMED Code Status Onset Date Resolution Date Notes Provider Name and Address Organization Details Recorded Time Disorder of shoulder 834514912 Active Not Available [facility] 3 02:53:11 Pain of bilateral hands 0737426984826 9109 Active 2021 Not Available [facility] 3 02:53:11 Bilateral trigger fingers 9325918455614 9109 Active 2021 Not Available [facility] 3 02:53:11 Radiothera py follow-up 428868325 Active Not Available [facility] 3 02:53:11 Full thickness rotator cuff tear 536128257 Active Not Available [facility] 3 02:53:11 Osteoarthr itis of knee 934909144 Active Not Available [facility] 3 02:53:11 Pain in right hand 9953544282757 09 Active 2021 Not Available [facility] 3 02:53:11 Tibialis tendinitis 04681762 Active Not Available [facility] 3 02:53:11 Trigger finger of right hand 8915922199924 9101 Active 2022 Sherlyn Petit, AGUS null, [place] [facility] 3 15:10:25 Osteoarthr itis 164035735 Active 2022 Sherlyn Petit AMARISKristine null, [facility] [address] [facility] 3 15:10:32 Pain of joint of elbow 660138488 Active 2022 Sherlyn Petit AGUS null, [facility] [address] [facility] 3 08:46:45 Ulnar nerve entrapment at elbow 612430143 Active 2022 Diane Lo null, [facility] [address] [facility] 3 09:18:43 Ulnar nerve entrapment at elbow 370583196 Active 2022 Mason Loja MD [address], [address] , [facility] [address] [facility] 3 07:16:23 Problem Notes None recorded. Procedures Surgical History Date Name Laterality Status Provider Name and Address Organization Details Recorded Time 4 Ortho - Cortisone Injection completed Reece Martinez MD [address], [address], [facility] [address] [facility] 04/01/2024 16:20:54 Imaging Results None recorded. Procedure Notes None recorded. Medical Equipment None Reported. Allergies Allergen ID Allergen Name Allergen Category Reaction Reaction Severity Criticality Documentation Date Start Date Code Code System Note Provider Name and Address Organization Details Recorded Time 4640 Product containin g penicilli n (product) medicatio n rash Not available Not available 01/23/2023 63376 8001 SNOMED Not Available [facility] 3 03:00:15 4641 lisinopri l medicatio n Not available Not available Not available 01/23/2023 66067 RxNorm helen turner Not Available [facility] 3 03:00:15 Medications Name Sig Start Date [...] suspension for injection in office 2023 active [facility]: [phone]- 20 Not Available [...] administe red by the provider 11/03 completed [facility]: [phone]- 17 Not Available Not Available Not Available Probiotic active Not Available Not Michelle ilable Not Available ropivacaine (PF) 5 mg/mL (0.5 %) injection solution in office 04/01 completed [facility] [phone] -[phone] Not Available Not Available Not Available Shingrix (PF) 50 mcg/0.5 mL intramuscul ar suspension, kit 04/01 completed Not Available Not Available Not Available Fluzone High-Dose Quad (PF) 240 mcg/0.7 mL IM syringe PHARMACIS T ADMINISTE RED IMMUNIZAT ION ADMINISTE RED AT TIME OF DISPENSIN G 10/06 completed Not Available Not Available Not Available Vitals Date Recorded Body height Body mass index (BMI) Body weight Provider Name and Address Organization Details Last Updated DateTime 04/01/2024 187.96 cm 30.8 kg/m2 731506.17 MARSHALL Fermin [facility] 04/01/2024 14:58:28 Date Recorded Body height Provider Name an d Address Organization Details Last Updated DateTime 06/18/2023 187.96 cm AGUS Mckinney [facility] 06/18/2023 08:45:36 Date Recorded Body height Body mass index (BMI) Body weight Provider Name and Address Organization Details Last Updated DateTime 08/01/2023 187.96 cm 31.1 kg/m2 690364.35 MARSHALL Fermin [place] [facility] 08/01/2023 09:47:13 Date Recorded Body height Body mass index (BMI) Body weight Provider Name and Address Organization Details Last Updated DateTime 08/13/2023 187.96 cm 31.1 kg/m2 315236.35 cruz 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, 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 11-15yearssi [email or web address] ette Information not available 04/01/2024 What Was The Date Of Your Most Recent Tobacco Screening? 04/09/2023 [email or web address] Information not available 04/09/2023 Sex: Unknown Functional Status Question Answer Note LastModified by [employer] Details LastModified Time What is your level of alcohol consumption? Occasional Information not available 04/01/2024 Mental Status None recorded. Family History Relationship Description Onset Age of this Age Resolved Age Notes LastModified by Organization Details LastModified Time Father Diabetes mellitus [id number] Not available 01/23/2023 02:47:44 Unspecified Relation Kidney disease Not available 06/2024 15:04:04 Medical History Condition Response ARTHRITIS Y USE OF BLOOD THINNERS Y Past Encounters Encounter ID Performer Location Encounter Start Date Encounter Closed Date Diagnosis/Indication Diagnosis SNOMED-CT Code Diagnosis ICD10 Code Diagnosis Note [id number] MD NIKKO [facility] [place] [address] [place] [address] 02/21/2021 00:00:00 02/21/2021 12:14:53 [id number] MD NIKKO [facility] [place] [address] [place] [address] 05/23/2021 00:00:00 05/23/2021 10:07:18 [id number] MD ERVIN [facility] [place] [address] [place] [address] 07/21/2021 00:00:00 07/21/2021 11:07:14 [id number] Pasquale Guaman MD [facility] [place] [address] [place] [address] 08/22/2021 00:00:00 08/22/2021 11:48:10 [id number] Pasquale Guaman MD [facility] [place] [address] [place] [address] 11/03/2021 00:00:00 11/03/2021 10:55:54 [id number] Pasquale Guaman MD [facility] [place] [address] [place] [address] 01/05/2022 00:00:00 01/05/2022 10:17:30 [id number] Pasquale Guaman MD [facility] [place] [address] [place] [address] 02/23/2022 00:00:00 02/23/2022 10:45:37 [id number] Pasquale Guaman MD [facility] [place] [address] [place] [address] 05/23/2022 00:00:00 05/23/2022 17:19:16 [id number] Pasquale Guaman MD [facility] [place] [address] [place] [address] 08/28/2022 00:00:00 08/28/2022 10:03:25 [id number] Pasquale Guaman MD [facility] [place] [address] [place] [address] 04/09/2023 14:57:13 04/09/2023 15:45:31 Pain of bilateral hands 6016238731 2933459 M79.641 Trigger fi nger of right hand 2729955014 8905720 M65.30 Osteoarthritis 035374640 M19.049 [id number] Pasquale Guaman MD [facility] [place] [address] [place] [address] 06/18/2023 08:42:23 06/18/2023 09:21:16 Pain of joint of elbow 001894748 M25.529 Ulnar nerv e entrapment at elbow 148970703 G56.21 G56.22 [id number] Mason Loja MD [facility] [place] [address] [place] [address] 08/01/2023 09:38:22 08/01/2023 10:35:18 Pain of joint of elbow 404064815 M25.529 Ulnar nerv e entrapment at elbow 710236298 G56.21 G56.22 Pre-surger y evaluation 103203755 Z01.040 [id number] Mason Loja MD [facility] [place] [address] [place] [address] 08/13/2023 14:56:55 08/13/2023 15:21:33 Pain of joint of elbow 397024430 M25.529 Ulnar nerv e entrapment at elbow 074625875 G56.21 G56.22 Postoperative visit 1836 28588 Z09 [id number] Mason Loja MD [facility] [place] [address] [place] [address] 08/20/2023 14:32:37 08/20/2023 14:50:18 Ulnar nerve entrapment at elbow 979988396 G56.21 G56.22 [id number] Reece Martinez MD [facility] [place] [address] [place] [address] 04/01/2024 14:42:48 04/01/2024 15:24:22 Pain in right hand 3797293450 01693 M79.641 Health Concerns Section Related Observation LastModified by Organization Detai ls LastModified Time None Recorded Concern Status LastModified by Organization Details LastModified Time None Recorded Advance Directives Directive None Recorded Payers Encounter Date Sequence Insurance Name Policy Number Policy Leyva Covered Member ID Leyva Member ID Guarantor Name 06/18/2023 1 [place] Reece Rendon [id number] Reece Rendon 06/18/2023 2 [employer] (MEDICARE SUPPLEMENT) Reece Rendon [id number] Reece Rendon 08/01/2023 1 [place] Reece Rendon [id number] Reece Rendon 08/01/2023 2 [employer] (MEDICARE SUPPLEMENT) Reece Rendon [id number] Reece Rendon 08/13/2023 1 [place] Reece Rendon [id number] Reece Rendon 08/13/2023 2 [employer] (MEDICARE SUPPLEMENT) Reece Rendon [id number] Reece Rendon 08/20/2023 1 [place] Reece Rendon [id number] Reece Rendon 08/20/2023 2 [employer] (MEDICARE SUPPLEMENT) Reece Rendon [id number] Reece Rendon 04/01/2024 1 [place] Reece Rendon [id number] Reece Rendon 04/01/2024 2 [employer] (MEDICARE SUPPLEMENT) Reece Rendon [id number] Reece Rendon Notes Date Note Type Note [...] epicondyle after lifting 6 batteries. DELILAH Silver [address] [place] [address], [place], [address], [facility] 06/18/2023 12:29:29 08/01/2023 text/html 73-year-old male returns [...] batteries. Mason Loja MD [address], [place], [address], [facility] 08/01/2023 10:11:48 08/13/2023 text/html Patient returns status post cubital tunnel release left. He still has numbness and tingling although it is a bit better and the burning is gone. He is worried because he had a little drainage from the incision. Mason Loja MD [address], [place], [address], [facility] 08/13/2023 15:30:42 08/20/2023 text/html Patient returns status post cubital tunnel release left. He still has numbness and tingling although it is a bit better and the burning is gone. He is worried because he had a little drainage from the incision. Mason Loja MD [address], [place], [address], [facility] 08/20/2023 14:43:10
== END 2025-05-03 10:59 | disposition home or self-care (01) ==
PROVIDERS: PCP Family Medicine; Visit Provider Orthopaedic Surgery Hand Surgery
DX: M79.641 Pain in right hand (principal); M79.642 Pain in left hand
CPT/HCPCS: 73130

== ENCOUNTER 2025-06-09 10:17 | Outpatient (CLI) | payer MEDICARE, OTHER, SELFPAY ==
--- NOTE | ~2025-06-09 | US_ITS ---
Thyroid ultrasound. Clinical History: Thyroid nodule Findings: Real-time sonography of the thyroid gland was performed. The right lobe measures 4.9 x 2.7 x 3.0 cm. The left lobe measures 6.3 x 1.9 x 2.1 cm. The isthmus is 2 mm in AP diameter. There is a 2.7 x 2.1 x 2.2 cm peripherally hyperechoic solid nodule at the right midpole with small c ystic components. There is a 3.2 x 2.6 x 2.8 cm heterogeneously solid nodule at the left midpole, probably mildly hyper echoic. Impression: Bilateral thyroid nodules, as detailed above, similar to prior CT scan dated 05/11/2024. Imaging sonog raphically is somewhat suboptimal. Reviewed, dictated and finalized at [facility]. Impression: Bilateral thyroid nodules, as detailed above, similar to prior CT scan dated . Imaging sonographically is somewhat suboptimal.
--- OUTSIDE RECORDS SUMMARY | 2025-06-09 10:31 | XMS_ITS | Data Portability ---
Author Organization [place] [facility], Main Office Address [address] [place] [address] Care Team Providers Care Nursing Clinical Director Name Role Phone JOE VASQUEZ Primary Care [...] His EMG is being held up because [facility] got hacked and we areunable [...] DO Not Attach Compendium, Do Not Delete/merge, [id number] 3 16:39:30 Referral None recorded. Procedures injection/ aspiration joint/burs a (PROC) 2023 024 [email or web address] In-Office Order, Internal Use Only DO Not Attach Compendium DO Not Attach Compendium, Do Not Delete/merge, [id number] 4 11:33:42 Surgeries cubital tunnel release (SURG) 2022 023 [email or web address] [facility], [address], [place], [address], 3 14:55:09 Imaging XR, hand, 3 or more view 2023 024 [facility] [place], [address], [place], [address], 4 09:14:39 electrocar diogram - Please fax results to Dx hypertensi on 2022 023 [facility] In-Office Order, Internal Use Only DO Not Attach Compendium DO Not Attach Compendium, Do Not Delete/merge, [id number] 3 14:50:45 XR, elbow, 3 or more view 2022 023 [email or web address] [facility] [place], [address], [place], [address], 3 12:29:22 electromyo gram + nerve conduction study - LOCATION [facility], PLEASE CALL PATIENT TO SCHEDULE 2022 023 [facility] Nerve Condution Scheduling, [address] , [place], [address], 3 21:07:15 Medication Orders bupivacain e HCl 0.5 % (5 mg/mL) injection solution [address]/Pharmacy #[id number], [address] [place], [address], 4 17:16:55 Kenalog 10 mg/mL suspension for injection [address]/Pharmacy #[id number], [address] [place], [address], 4 17:16:55 doxycyclin e hyclate 100 mg capsule 2022 023 [email or web address] 1 [facility]/Pharmacy #[id number], [address] [place], [address], 4 15:00:39 Patient TargetsNo targets recorded. Patient InstructionsNo instructions recorded. Reason for Referral None Reported. Results Created Date Observation Date Name Description Value Unit Range Abnormal Flag Note LastModifiedBy Organization Detail LastModifiedTime 06/18/20 23 XR, elbow , 3 or more view No observ ation record ed. [email or web address] [facility] [place] [address], [place], [address], 06/18/2023 12:29:21 08/02/20 23 elect tyree blanc am No observ ation record ed. [email or web address] In-Office Order Internal Use Only DO Not Attach Compendium DO Not Attach Compendium, Do Not Delete/merge, [id number] 08/02/2023 14:50:45 08/22/20 23 08/21/2023 elect romyo [...] more view No observ ation record ed. [facility] [place] [address], [place], [address], 04/01/2024 15:06:42 Result Notes None recorded. Problems Name Problem SNOMED Code Status Onset Date Resolution Date Notes Provider Name and Address Organization Details Recorded Time Disorder of shoulder 526867195 Active Not Available [facility] 3 02:53:11 Pain of bilateral hands 1139445524186 9109 Active 2021 Not Available [facility] 3 02:53:11 Bilateral trigger fingers 4033105771043 9109 Active 2021 Not Available [facility] 3 02:53:11 Radiothera py follow-up 783907350 Active Not Available [facility] 3 02:53:11 Full thickness rotator cuff tear 832729239 Active Not Available [facility] 3 02:53:11 Osteoarthr itis of knee 842031216 Active Not Available [facility] 3 02:53:11 Pain in right hand 0833870982489 09 Active 2021 Not Available [facility] 3 02:53:11 Tibialis tendinitis 11580481 Active Not Available [facility] 3 02:53:11 Trigger finger of right hand 6345334757220 9101 Active 2022 Sherlyn Petit, AGUS null, [facility] 3 15:10:25 Osteoarthr itis 440302021 Active 2022 Sherlyn Marisabel AGUS null, [facility] 3 15:10:32 Pain of joint of elbow 226966976 Active 2022 Sherlyn MarisabelAGUS null, [facility] 3 08:46:45 Ulnar nerve entrapment at elbow 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 Procedures Surgical History Date Name Laterality Status Provider Name and Address Organization Details Recorded Time 4 Ortho - Cortisone Injection completed Reece Martinez MD [address] [address], [place], [address], [facility] 04/01/2024 16:20:54 Imaging Results None recorded. Procedure Notes None recorded. Medical Equipment None Reported. Allergies Allergen ID Allergen Name Allergen Category Reaction Reaction Severity Criticality Documentation Date Start Date Code Code System Note Provider Name and Address Organization Details Recorded Time 4640 Product containin g penicilli n (product) medicatio n rash Not available Not available 01/23/2023 91909 8001 SNOMED Not Available [facility] 3 03:00:15 4641 lisinopri l medicatio n Not available Not available Not available 01/23/2023 44284 RxNorm helen lama e Not Available [facility] 3 03:00:15 Medications Name Sig Start Date [...] suspension for injection in office 2023 active [facility]: 0003- 0494- 20 Not Available Not Available [...] administe red by the provider 11/03 completed [facility]: 0409- 4276- 17 Not Available Not Available Not Available Probiotic active Not Available Not Michelle ilable Not Available ropivacaine (PF) 5 mg/mL (0.5 %) injection solution in office 04/01 completed [facility] 75011 -064- 01 Not Available Not Available Not [...] Updated DateTime 04/01/2024 187.96 cm 30.8 kg/m2 073239.17 cruz Reid ATC L [employer] 04/01/2024 14:58:28 Date Recorded Body height Provider Name an d Address Organization Details Last Updated DateTime 06/18/2023 187.96 cm AGUS Mckinney [employer] 06/18/2023 08:45:36 Date Recorded Body height Body mass index (BMI) Body weight Provider Name and Address Organization Details Last Updated DateTime 08/01/2023 187.96 cm 31.1 kg/m2 112318.35 cruz Reid ATC L [employer] 08/01/2023 09:47:13 Date Recorded Body height Body mass index (BMI) Body weight Provider Name and Address Organization Details Last Updated DateTime 08/13/2023 187.96 cm 31.1 kg/m2 680576.35 g Alia Turner, HEAVY [employer]TI[employer] [facility] [employer] 08/13/2023 14:59:34 Date Recorded Body height Body mass index (BMI) Body weight Provider Name and Address Organization Details Last Updated DateTime 08/20/2023 187.96 cm 31.1 kg/m2 659589.35 g Adore Scott, RMA CT [employer] [facility] [employer] 08/20/2023 14:34:50 Social History Question Answer Notes LastModified by [place] Details LastModified Time Tobacco Smoking Status Former Smoker Carlene Reid, ATC L null, [employer] [facility] [employer] 04/01/2024 15:04:43 When Did You Quit Smoking? 11-15yearssi [email or web address] ette Information not available 04/01/2024 What Was The Date Of Your Most Recent Tobacco Screening? 04/09/2023 [email or web address] Information not available 04/09/2023 Sex: Unknown Functional Status Question Answer Note LastModified by [employer] Details LastModified Time What is your level of alcohol consumption? Occasional Information not available 04/01/2024 Mental Status None recorded. Family History Relationship Description Onset Age of this Age Resolved Age Notes LastModified by Organization Details LastModified Time Father Diabetes mellitus [id number] Not available 01/23/2023 02:47:44 Unspecified Relation Kidney disease Not available 06/2024 15:04:04 Medical History Condition Response ARTHRITIS Y USE OF BLOOD THINNERS Y Past Encounters Encounter ID Performer Location Encounter Start Date Encounter Closed Date Diagnosis/Indication Diagnosis SNOMED-CT Code Diagnosis ICD10 Code Diagnosis Note [id number] MD NIKKO [facility] [place] [address] [place] [address] 02/21/2021 00:00:00 02/21/2021 12:14:53 [id number] MD CAROLINE [facility] [place] [address] [place] [address] 05/23/2021 00:00:00 05/23/2021 10:07:18 [id number] Pasquale Guaman, MD [facility] [place] [address] [place] [address] 07/21/2021 00:00:00 07/21/2021 11:07:14 [id number] Pasquale Guaman MD [facility] [place] [address] [place] [address] 08/22/2021 00:00:00 08/22/2021 11:48:10 [id number] Pasquale Guaman MD [facility] [place] [address] [place] [address] 11/03/2021 00:00:00 11/03/2021 10:55:54 [id number] Pasquale Guaman MD [facility] [place] [address] [place] [address] 01/05/2022 00:00:00 01/05/2022 10:17:30 [id number] Pasquale Guaman MD [facility] [place] [address] [place] [address] 02/23/2022 00:00:00 02/23/2022 10:45:37 [id number] Pasquale Guaman MD [facility] [place] [address] [place] [address] 05/23/2022 00:00:00 05/23/2022 17:19:16 [id number] Pasquale Guaman MD [facility] [place] [address] [place] [address] 08/28/2022 00:00:00 08/28/2022 10:03:25 [id number] Pasquale Guaman MD [facility] [place] [address] [place] [address] 04/09/2023 14:57:13 04/09/2023 15:45:31 Pain of bilateral hands 5263382286 6227047 M79.641 Trigger fi nger of right hand 4712843666 3026543 M65.30 Osteoarthritis 315181036 M19.049 [id number] Pasquale Guaman MD [facility] [place] [address] [place] [address] 06/18/2023 08:42:23 06/18/2023 09:21:16 Pain of joint of elbow 653229306 M25.529 Ulnar nerv e entrapment at elbow 186253129 G56.21 G56.22 [id number] Mason Loja MD [facility] [place] [address] [place] [address] 08/01/2023 09:38:22 08/01/2023 10:35:18 Pain of joint of elbow 926559910 M25.529 Ulnar nerv e entrapment at elbow 946572638 G56.21 G56.22 Pre-surger y evaluation 300800820 Z01.832 [id number] Mason Loja MD [facility] [place] [address] [place] [address] 08/13/2023 14:56:55 08/13/2023 15:21:33 Pain of joint of elbow 539055769 M25.529 Ulnar nerv e entrapment at elbow 114365134 G56.21 G56.22 Postoperative visit 1836 34007 Z09 [id number] Mason Loja MD [facility] [place] [address] [place] [address] 08/20/2023 14:32:37 08/20/2023 14:50:18 Ulnar nerve entrapment at elbow 900202161 G56.21 G56.22 [id number] Reece Martinez MD [facility] [place] [address] [place] [address] 04/01/2024 14:42:48 04/01/2024 15:24:22 Pain in right hand 3218204475 20143 M79.641 Health Concerns Section Related Observation LastModified by Organization Detai ls LastModified Time None Recorded Concern Status LastModified by Organization Details LastModified Time None Recorded Advance Directives Directive None Recorded Payers Insurance Date Sequence Insurance Name Policy Number Policy Leyva Covered Member ID Leyva Member ID Guarantor Name 04/01/2024 1 [place] Reece Rendon [id number] Reece Rendon 04/09/2024 2 [facility] (MEDICARE SUPPLEMENT) Reece Olmstead Justice [id number] Reece Rendon Notes Date Note Type Note [...] epicondyle after lifting 6 batteries. DELILAH Silver [address], [place], [address], [employer] 06/18/2023 12:29:29 08/01/2023 text/html 73-year-old male returns [...] batteries. Mason Loja MD [address], [place], [address], [place] 08/01/2023 10:11:48 08/13/2023 text/html Patient returns status post cubital tunnel release left. He still has numbness and tingling although it is a bit better and the burning is gone. He is worried because he had a little drainage from the incision. Mason Loja MD [address], [place], [address], [place] 08/13/2023 15:30:42 08/20/2023 text/html Patient returns status post cubital tunnel release left. He still has numbness and tingling although it is a bit better and the burning is gone. He is worried because he had a little drainage from the incision. Mason Loja MD [address] [place] [address], [address], [place] [facility] 08/20/2023 14:43:10
--- OUTSIDE RECORDS SUMMARY | 2025-06-09 10:31 | XMS_ITS | Clinical Summary ---
Author Organization [facility] Address [address] [address] Care Team Providers Care Slip Bridge Operator Name Role Phone Andre Edwards MD Primary Care Provider [phone] Source Comments [facility],non-owned Affiliates and Associated Physician Practices is amultiple site organization consisting of ambulatory clinics and hospital sitesin [place], [place], [place] and [place]. This disclosure is being madepursuant to the Care Everywhere program and may not contain all information available regarding this patient. 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 Gender Identity Not on file Sexual Orientation [...] VACCINE (1 of 2) 02/15/2002 COVID-19 VACCINE (6 - season) 2024 08/23/2022, 04/26/2022, 09/27/2021, Additional history exists DEPRESSION SCREENING 11/25/2024 INFLUENZA VACCINE (#1) 2025 2, 08/18/2020, 10/20/2019, Additional history exists Respiratory Syncytial [...] to complete this topic Insurance MEDICARE MEDICARE [facility] MEDICARE [employer] MEDIC[employer] Care Teams Slip Bridge Operator Relationship Specialty Start Date End Date Andre Edwards MD [address] [place] [id number] PCP - General Family Medicine 09/04/24
== END 2025-06-09 10:18 | disposition home or self-care (01) ==
PROVIDERS: PCP Family Medicine; Visit Provider Internal Medicine Endocrinology, Diabetes & Metabolism
DX: E04.2 Nontoxic multinodular goiter (principal)
CPT/HCPCS: 76536